=== PATIENT | male | born 1970 | race African-American/Black ===

== ENCOUNTER 2016-12-28 11:17 | Inpatient (IN) | payer OTHER ==
[~2016-12-28] VITALS: Ht 185.4 cm; Wt 79.4 kg
[~2016-12-28 11:17] MED LIST: CARAFATE1 G1 ORAL; CIPRO500 MG PO; NKM; NORCO 5-325 TA1 EACH ORAL; OMEPRAZOLE40 M1 ORAL; PHENERGAN25 M1 ORAL; PRILOSEC OTC20 MG ORAL; PROTONIX40 MG ORAL; RANITIDINE HCL150 MG ORAL; REGLAN10 MG ORAL; ZOFRAN4 M3 ORAL; ZOFRAN4 MG ORAL
[2016-12-28 11:31] VITALS: BP 129/100
--- NOTE | 2016-12-28 11:42 | Emergency Room Report ---
History of Present Illness General Chief Complaint: Vomiting Source: Patient Present Illness HPI Patient is with complaints of epigastric discomfort nausea vomiting Ongoing since last Friday Patient reports recent hospitalization at [facility] Reports that he worse or however does not have insurance he reports that he was scoped last month and was told that he had gastritis Denies any chest pressures of breath denies any back or flank pain Is not certain why he is having this recurrent discomfort Allergies: Coded Allergies: No Known Allergies (Unverified , 04/19/14) Patient History Past Medical History: see triage record Pertinent Family History: none Reviewed Nursing Documentation: PMH: Agreed, PSxH: Agreed Nursing Documentation-PM Past Medical History: No Stated History Hx Cardiac Problems: No Hx Cancer: No Hx Gastrointestinal Problems: Yes - ABDOMINAL PAIN,GASTRITIS Hx Neurological Problems: No Review of Systems All Other Systems: negative except mentioned in HPI Physical Exam Vital Signs Date Time Temp Pulse Resp B/P (MAP) Pulse Ox O2 Delivery O2 Flow Rate FiO2 12/28/16 11:21 98.1 116 18 116/81 98 Room Air Sp02 EP Interpretation: reviewed, normal General Appearance: mild distress - Appears uncomfortable Head: normocephalic, atraumatic Eyes: bilateral eye PERRL, bilateral eye EOMI ENT: hearing grossly normal, normal pharynx, TMs + canals normal, uvula midline Neck: full range of motion, supple, no meningismus, no bony tend Respiratory: lungs clear, normal breath sounds, no rhonchi, no respiratory distress, no retraction, no accessory muscle use Cardiovascular #1: normal peripheral pulses, regular rate, rhythm, no edema, no gallop, no JVD, no murmur Gastrointestinal: normal bowel sounds, non tender - However subjectively uncomfortable in the epigastric area, soft, no mass, no organomegaly, non- distended, no guarding, no hernia, no pulsatile mass, no rebound Genitourinary: no CVA tenderness Musculoskeletal: normal inspection Neurologic: oriented x3, responsive, saddle lining stitcher III-XII nml as tested, motor strength/ tone normal, sensory intact Psychiatric: mood/affect normal Skin: normal color, no rash, warm/dry, palpation normal Lymphatic: normal inspection, no adenopathy Medical Decision Making Diagnostic Impression: Primary Impression: Vomiting Additional Impressions: Acute renal insufficiency Acute gastritis ER Course With the history exam and presentation, multiple differentials considered, including but not limited to appendicitis, gastritis, cholecystitis, diverticulitis Patient has a benign lower abdominal evaluation IV hydration pain medication was provided On review of blood work patient's kidney function has significantly worsened from previous At this time requires admission for further care Labs Test 12/28/16 11:45 White Blood Count 9.3 K/UL (4.8-10.8) Red Blood Count 6.72 M/UL (4.70-6.10) Hemoglobin 18.6 G/DL (14.2-18.0) Hematocrit 58.7 % (42.0-52.0) Mean Corpuscular Volume 87 FL (80-99) Mean Corpuscular Hemoglobin 27.6 PG (27.0-31.0) Mean Corpuscular Hemoglobin Concent 31.7 G/DL (32.0-36.0) Red Cell Distribution Width 12.8 % (11.6-14.8) Platelet Count 279 K/UL (150-450) Mean Platelet Volume 7.9 FL (6.5-10.1) Neutrophils (%) (Auto) 76.4 % (45.0-75.0) Lymphocytes (%) (Auto) 12.0 % (20.0-45.0) Monocytes (%) (Auto) 10.3 % (1.0-10.0) Eosinophils (%) (Auto) 0.4 % (0.0-3.0) Basophils (%) (Auto) 0.9 % (0.0-2.0) Sodium Level 136 mEQ/L (135-145) Potassium Level 3.1 mEQ/L (3.4-4.9) Chloride Level 86 mEQ/L (98-107) Carbon Dioxide Level 26 mEQ/L (20-30) Anion Gap 24 (5-15) Blood Urea Nitrogen 57 mg/dL (7-23) Creatinine 2.6 mg/dL (0.7-1.2) Estimat Glomerular Filtration Rate 32.5 mL/min (>60) Glucose Level 120 mg/dL (74-106) Calcium Level 10.2 mg/dL (8.6-10.2) Total Bilirubin 0.8 mg/dL (0.0-1.2) Aspartate Amino Transf (AST/SGOT) 17 U/L (5-40) Alanine Aminotransferase (ALT/SGPT) 15 U/L (3-41) Alkaline Phosphatase 95 U/L (40-129) Total Protein 9.4 g/dL (6.6-8.7) Albumin 5.4 g/dL (3.5-5.2) Globulin 4.0 g/dL Albumin/Globulin Ratio 1.3 (1.0-2.7) Lipase 27 U/L (< 60) Last Vital Signs Date Time Temp Pulse Resp B/P (MAP) Pulse Ox O2 Delivery O2 Flow Rate FiO2 12/28/16 11:31 97.0 110 18 129/100 98 Room Air Status: improved Disposition: ADMITTED INPATIENT Condition: Serious CHRISTELLE PLATA D.O. Dec 28, 2016 11:42
[2016-12-28] MEDS ORDERED: Metoclopramide 10mg/2ml Inj IVP ONE (11:45)
[2016-12-28] MEDS ORDERED: Morphine Sulfate 4mg/ml Inj IVP ONE (11:45)
[2016-12-28] MEDS ORDERED: LORazepam Inj 2mg/ml 1ml IV ONE (11:45)
[2016-12-28 12:40] LABS: BASOPHILS % (AUTO) 0.9 % (0.0-2.0); EOSINOPHILS % (AUTO) 0.4 % (0.0-3.0); MEAN CORPUSCULAR HEMOGLOBIN 27.6 PG (27.0-31.0); MEAN CORPUSCULAR HGB CONC 31.7 G/DL (32.0-36.0); MEAN CORPUSCULAR VOLUME 87 FL (80-99); MEAN PLATELET VOLUME 7.9 FL (6.5-10.1); MONOCYTES % (AUTO) 10.3 % (1.0-10.0); NEUTROPHILS % (AUTO) 76.4 % (45.0-75.0); PLATELET COUNT 279 K/UL (150-450); RED BLOOD COUNT 6.72 M/UL (4.70-6.10); RED CELL DISTRIBUTION WIDTH 12.8 % (11.6-14.8); WHITE BLOOD COUNT 9.3 K/UL (4.8-10.8)
[2016-12-28 12:44] VITALS: BP 153/93
[2016-12-28 13:03] LABS: ALBUMIN/GLOBULIN RATIO 1.3 (1.0-2.7); CALCIUM 10.2 mg/dL (8.6-10.2); CREATININE 2.6 mg/dL (0.7-1.2); GLOMERULAR FILTRATION RATE 32.5 mL/min (>60); POTASSIUM 3.1 mEQ/L (3.4-4.9); TOTAL PROTEIN 9.4 g/dL (6.6-8.7)
[2016-12-28] MEDS ORDERED: HYDROmorphone 1 MG, DiphenhydrAMINE 25 MG in NS 55 ML IV ONE (13:30)
[2016-12-28] MEDS ORDERED: HYDROmorphone 1mg/ml Carpuject ONE (13:32)
[2016-12-28] MEDS ORDERED: DiphenhydrAMINE 50mg/ml Inj ONE (13:32)
[2016-12-28 14:30] VITALS: BP 119/91
[2016-12-28 16:42] VITALS: BP 133/90
[2016-12-28] MEDS ORDERED: Norco 10mg/325mg tab ORAL PRN (18:30)
[2016-12-28] MEDS: D5NS 1,000 ML IV SCH (18:41)
[2016-12-28] MEDS: Morphine Sulfate 2mg/ml Inj IVP PRN ×2 (18:42→22:43)
[2016-12-28 20:00] VITALS: BP 124/86
[2016-12-28] MEDS: Heparin 5000 units/ml inj SUBQ SCH (20:32)
[2016-12-29] VITALS: BP 123/76
[2016-12-29] MEDS: Morphine Sulfate 2mg/ml Inj IVP PRN (02:43)
[2016-12-29 04:00] VITALS: BP 135/81
[2016-12-29] MEDS: D5NS 1,000 ML IV SCH ×2 (04:45→14:37)
[2016-12-29 08:00] VITALS: BP 127/90
[2016-12-29] MEDS: Heparin 5000 units/ml inj SUBQ SCH (09:00)
[2016-12-29 12:00] VITALS: BP 131/86
[2016-12-29] MEDS ORDERED: Hydrocortisone 1% Cr 15gm TOPIC PRN (13:15)
[2016-12-29] MEDS ORDERED: D5NS 1000ml IV ONE (15:06)
[2016-12-29] MEDS ORDERED: NS 55ml IV ONE (15:59)
--- NOTE | 2016-12-30 15:59 | Discharge Summary ---
Discharge Summary Hospital Course Date of Admission Dec 28, 2016 at 14:00 Date of Discharge Dec 29, 2016 at 16:00 Admitting Diagnosis renal failure HPI Rafa Damian is a 46 year old male who was admitted on Dec 28, 2016 at 14:00 for Renal Failure Hospital Course dc summary #[id number] Discharge Discharge Disposition Patient eloped Discharge Diagnoses: Discharge Instructions Discharge Instructions Special Instructions I have been assigned to complete a D/C Summary on this account. I was not involved in the patient management Sophie Magaña NP (Vanchtein) Dec 30, 2016 15:59
--- NOTE | 2016-12-31 04:45 | Discharge Summary 2 SIG ---
DATE OF ADMISSION: 12/28/2016 DATE OF ELOPEMENT: 12/29/2016 Reason For Admission: 46-year-old male presented to emergency department for evaluation of epigastric discomfort, nausea, and vomiting for five days. The patient reported recent hospitalization in [place]. He also reported having endoscopy last month. After the procedure, he was told that he had gastritis. He denied chest pain. Denied shortness of breath. No back pain. No flank pain. The patient without other past medical history. Workup in the emergency room revealed tachycardia -116, no fever. Laboratory workup revealed no leukocytosis. Stable hemoglobin and hematocrit. Stable electrolytes except potassium -3.1, BUN -57, and creatinine-2.6. LFT, lipase and bilirubin were all within normal limits. The patient was given IV fluids, medicated for pain, given antiemetic and Pepcid and subsequently was admitted for further management. ADMITTING DIAGNOSES: 1. Acute gastritis. 2. Acute renal insufficiency. 3. Vomiting. 4. Hypokalemia. Hospital Stay: The patient was admitted to Med/Surg floor. The patient kept NPO on IV fluids. Pain management was provided. DVT and GI prophylaxis were provided. Antiemetic provided as needed.No nausea, no vomiting. Abdominal exam was benign from the ED. The patient was waiting for primary care physician to see him but then decided to elope. The patient did not have any IV access at that time. According to windows security analyst, he got to the car and left. FINAL DIAGNOSES: 1. Acute gastritis. 2. Acute renal insufficiency. 3. Vomiting. 4. Hypokalemia. Armin Gonzales M.D. I have been assigned to dictate discharge summary on this account and I was not involved in the patient's management. Sophie Subramanianreginald N.P. DR: LEÓN JOB#: [id number] CC: MAGUI
--- NOTE | 2017-01-05 22:58 | History and Physical ---
History of Present Illness General Date patient seen: Dec 29, 2016 Reason for Hospitalization: Vomiting Present Illness HPI 46 y/o male with no significant PMH who presented to the ED c/o abdominal pain with nausea and vomiting. Patient was admitted for further care. Upon admission, patient refused care per RN reports. He eloped and was not seen. Allergies: Coded Allergies: No Known Allergies (Unverified , 04/19/14) Medication History Scheduled Ciprofloxacin* (Cipro*), 500 MG PO BID No Known Medications* (NKM - No Known Medications*), 0 ., (Reported) Omeprazole (Omeprazole), 40 MG ORAL DAILY Promethazine Hcl* (Phenergan*), 25 MG ORAL Q6H Ranitidine Hcl* (Zantac*), 150 MG ORAL TWICE A DAY Ranitidine Hcl* (Zantac*), 150 MG ORAL TWICE A DAY Scheduled PRN Hydrocodone Bit/Acetaminophen 5-325* ([place] 5-325*), 1 TAB ORAL Q6H PRN for For Pain Ondansetron (Zofran), 4 MG ORAL Q6H PRN for Nausea & Vomiting Patient History Healthcare decision maker Resuscitation status Advanced Directive on File Physical Exam Height (Feet): 6 Height (Inches): 1.00 Weight (Pounds): 175 SAKINA CAPPS Jan 05, 2017 22:58
== END 2016-12-29 16:00 | disposition left against medical advice (07) | DRG 241 ==
LOC: EMR 11:46 → 4E 14:00 → EDBEDREQ 16:23 → 4E 16:51
DX: K29.70 Gastritis, unspecified, without bleeding (principal); E87.6 Hypokalemia; N28.9 Disorder of kidney and ureter, unspecified; R11.10 Vomiting, unspecified
CPT/HCPCS: 36415; 80053; 80300; 83690; 85025; 99285; J2405; J2765

== ENCOUNTER 2017-03-09 16:42 | Inpatient (IN) | payer OTHER ==
[~2017-03-09] VITALS: Ht 185.4 cm; Wt 77.1 kg
[2017-03-09] MEDS ORDERED: PRILOSEC10 M1 ORAL (17:00)
[2017-03-09] MEDS ORDERED: ZOFRAN8 MG ORAL (17:00)
[2017-03-09] MEDS ORDERED: DiphenhydrAMINE 50mg/ml Inj IVP ONE (17:00)
[2017-03-09] MEDS ORDERED: Morphine Sulfate 4mg/ml Inj IVP ONE ×2 (17:00→19:00)
[2017-03-09] MEDS ORDERED: Metoclopramide 10mg/2ml Inj IVP ONE (17:00)
[2017-03-09] MEDS ORDERED: METOCLOPRAMIDE H5 M1 ORAL (17:00)
[2017-03-09 17:01] VITALS: BP 113/81
--- NOTE | 2017-03-09 17:21 | Emergency Room Report ---
History of Present Illness General Chief Complaint: Abdominal Pain Source: Patient Present Illness HPI Patient presents with epigastric pain. He has a history of gastritis. Feels like that to him. He does not recognize the name pancreatitis. The pain began yesterday. His epigastric radiate somewhat into the chest. It's burning and 10 /10 at this time. He denies alcohol. He tried smoking some cannabis to help himself with his pain. He denies any other medications at this time. He denies vomiting blood. Denies any melena. There's no fever, chills, cough, dysuria, joint pain. No headache. Generalized weakness. In the past he has had both cyclic vomiting and renal insufficiency. 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: PMH: Agreed, PSxH: Agreed Nursing Documentation-PMH Hx Cardiac Problems: No Hx Cancer: No Hx Gastrointestinal Problems: Yes - Reflux Hx Neurological Problems: No Review of Systems All Other Systems: negative except mentioned in HPI Physical Exam Vital Signs Date Time Temp Pulse Resp B/P (MAP) Pulse Ox O2 Delivery O2 Flow Rate FiO2 03/09/17 16:51 99.0 121 18 108/75 96 Room Air Sp02 EP Interpretation: reviewed, normal General Appearance: well appearing, no apparent distress, GCS 15, thin Head: normocephalic Eyes: bilateral eye Scleral Injection ENT: moist mucus membranes Neck: supple Respiratory: lungs clear, normal breath sounds Cardiovascular #1: regular rate, rhythm Cardiovascular #2: 2+ radial (R) Gastrointestinal: normal inspection, normal bowel sounds, no mass, non- distended, no guarding, no rebound, tenderness, scaphoid Musculoskeletal: back normal, gait/station normal, normal range of motion Neurologic: alert, oriented x3, grossly normal Psychiatric: mood/affect normal Skin: normal inspection, warm/dry Medical Decision Making Diagnostic Impression: Primary Impression: Abdominal pain Qualified Codes: R10.13 - Epigastric pain Additional Impressions: Acute renal failure Qualified Codes: N17.9 - Acute kidney failure, unspecified Gastritis Qualified Codes: K29.00 - Acute gastritis without bleeding Dehydration Intractable vomiting Qualified Codes: R11.2 - Nausea with vomiting, unspecified ER Course The patient presents with epigastric pain and vomiting. He has a history of gastritis. Differential includes gastritis, peptic ulcer disease, pancreatitis number GERD amongst others. Evaluation will be with labs, EKG. The patient was treated with IV hydration, Pepcid and analgesia. Labs with mild leukocytosis, renal failure. Polycythemia suggests volume depletion. Hypercalcemia. Improved with medication but still episodes of vomiting. Treated again with zofran. Repeat analgesia. Admit medical Dr. Gonzales. Laboratory Tests Test 03/09/17 18:25 03/10/17 02:00 White Blood Count 13.9 K/UL (4.8-10.8) H Red Blood Count 6.13 M/UL (4.70-6.10) H Hemoglobin 17.1 G/DL (14.2-18.0) Hematocrit 55.0 % (42.0-52.0) H Mean Corpuscular Volume 90 FL (80-99) Mean Corpuscular Hemoglobin 27.9 PG (27.0-31.0) Mean Corpuscular Hemoglobin Concent 31.1 G/DL (32.0-36.0) L Red Cell Distribution Width 13.9 % (11.6-14.8) Platelet Count 231 K/UL (150-450) Mean Platelet Volume 8.0 FL (6.5-10.1) Neutrophils (%) (Auto) % (45.0-75.0) Lymphocytes (%) (Auto) % (20.0-45.0) Monocytes (%) (Auto) % (1.0-10.0) Eosinophils (%) (Auto) % (0.0-3.0) Basophils (%) (Auto) % (0.0-2.0) Differential Total Cells Counted 100 Neutrophils % (Manual) 85 % (45-75) H Lymphocytes % (Manual) 8 % (20-45) L Monocytes % (Manual) 5 % (1-10) Eosinophils % (Manual) 2 % (0-3) Basophils % (Manual) 0 % (0-2) Band Neutrophils 0 % (0-8) Platelet Estimate Adequate Platelet Morphology Normal Red Blood Cell Morphology Normal Prothrombin Time 10.7 SEC (9.30-11.50) Prothrombin Time INR 1.0 (0.9-1.1) PTT 25 SEC (23-33) Sodium Level 144 MMOL/L (136-145) Potassium Level 4.1 MMOL/L (3.5-5.1) Chloride Level 100 MMOL/L (98-107) Carbon Dioxide Level 26 MMOL/L (21-32) Anion Gap 18 mmol/L (5-15) H Blood Urea Nitrogen 43 mg/dL (7-18) H Creatinine 3.8 MG/DL (0.55-1.30) H Estimate Glomerular Filtration Rate 21.0 mL/min (>60) Glucose Level 116 MG/DL (74-106) H Calcium Level 10.9 MG/DL (8.5-10.1) H Total Bilirubin 0.5 MG/DL (0.2-1.0) Aspartate Amino Transferase (AST) 26 U/L (15-37) Alanine Aminotransferase (ALT) 42 U/L (12-78) Alkaline Phosphatase 97 U/L (46-116) Total Creatine Kinase 276 U/L (26-308) Total Protein 10.8 G/DL (6.4-8.2) H Albumin 5.7 G/DL (3.4-5.0) H Globulin 5.1 g/dL Albumin/Globulin Ratio 1.1 (1.0-2.7) Lipase 83 U/L (73-393) Serum Alcohol < 3 mg/dL Urine Color Yellow Urine Appearance Clear Urine pH 5 (4.5-8.0) Urine Specific [place] 1.030 (1.005-1.035) Urine Protein 2+ (NEGATIVE) H Urine Glucose (UA) Negative (NEGATIVE) Urine Ketones Negative (NEGATIVE) Urine Occult Blood 1+ (NEGATIVE) H Urine Nitrite Negative (NEGATIVE) Urine Bilirubin Negative (NEGATIVE) Urine Urobilinogen Normal MG/DL (0.0-1.0) Urine Leukocyte Esterase 1+ (NEGATIVE) H Urine RBC 0-2 /HPF (0 - 0) H Urine WBC 0-2 /HPF (0 - 0) Urine Squamous Epithelial Cells Few /LPF (NONE/OCC) Urine Calcium Oxalate Crystals Few /LPF (NONE) Urine Bacteria Few /HPF (NONE) Urine Hyaline Casts 5-10 /LPF (NONE) H Urine Fine Granular Casts 5-10 /LPF (NONE) H Urine Opiates Screen Positive (NEGATIVE) H Urine Barbiturates Screen Negative (NEGATIVE) Phencyclidine (PCP) Screen Negative (NEGATIVE) Urine Amphetamines Screen Negative (NEGATIVE) Urine Benzodiazepines Screen Negative (NEGATIVE) Urine Cocaine Screen Negative (NEGATIVE) Urine Marijuana (THC) Screen Positive (NEGATIVE) H EKG Diagnostic Results Rate: normal Rhythm: NSR ST Segments: no acute changes Rhythm Strip Diag. Results EP Interpretation: yes Rhythm: NSR, no PVC's, no ectopy Chest X-Ray Diagnostic Results Chest X-Ray Diagnostic Results : Chest X-Ray Ordered: Yes # of Views/Limited/Complete: 1 View Indication: Other EP Interpretation: Yes Interpretation: no consolidation, no effusion, no pneumothorax, no acute cardiopulmonary disease Impression: No acute disease Electronically Signed by: Adán Magallon MD Last Vital Signs Date Time Temp Pulse Resp B/P (MAP) Pulse Ox O2 Delivery O2 Flow Rate FiO2 03/09/17 22:06 99.3 73 18 128/73 99 Room Air Status: improved Disposition: ADMITTED INPATIENT Condition: Serious Referrals: [facility] CARVALHO,REFERRING (PCP) Adán Magallon M.D. Mar 09, 2017 17:21
[2017-03-09 18:49] LABS: PROTHROMBIN TIME 10.7 SEC (9.30-11.50)
[2017-03-09 18:53] VITALS: BP 139/84
[2017-03-09 18:54] LABS: ANION GAP 18 mmol/L (5-15); CALCIUM 10.9 MG/DL (8.5-10.1); CARBON DIOXIDE 26 MMOL/L (21-32); CHLORIDE 100 MMOL/L (98-107); CREATININE 3.8 MG/DL (0.55-1.30); POTASSIUM 4.1 MMOL/L (3.5-5.1); SODIUM 144 MMOL/L (136-145)
[2017-03-09 18:56] LABS: MEAN CORPUSCULAR HEMOGLOBIN 27.9 PG (27.0-31.0); MEAN CORPUSCULAR HGB CONC 31.1 G/DL (32.0-36.0); MEAN CORPUSCULAR VOLUME 90 FL (80-99); PLATELET COUNT 231 K/UL (150-450); RED BLOOD COUNT 6.13 M/UL (4.70-6.10); RED CELL DISTRIBUTION WIDTH 13.9 % (11.6-14.8); WHITE BLOOD COUNT 13.9 K/UL (4.8-10.8)
[2017-03-09 19:08] LABS: ALANINE AMINOTRANSFERASE 42 U/L (12-78); ALBUMIN/GLOBULIN RATIO 1.1 (1.0-2.7); ASPARTATE AMINO TRANSFERASE 26 U/L (15-37); LIPASE 83 U/L (73-393); TOTAL PROTEIN 10.8 G/DL (6.4-8.2)
[2017-03-09 19:13] LABS: TOTAL CELLS COUNTED 100
[2017-03-09 19:14] LABS: EOSINOPHILS % (MANUAL) 2 % (0-3); LYMPHOCYTES % (MANUAL) 8 % (20-45); NEUTROPHILS % (MANUAL) 85 % (45-75)
[2017-03-09 19:15] LABS: BAND NEUTROPHILS % (MANUAL) 0 % (0-8); BASOPHILS % (MANUAL) 0 % (0-2); PLATELET ESTIMATE ADEQUATE; PLATELET MORPHOLOGY NORMAL
[2017-03-09 19:20] VITALS: BP 135/81
[2017-03-09] MEDS ORDERED: OMEPRAZOLE MAGN20 MG PO (20:09)
[2017-03-09 21:35] VITALS: BP 128/73
[2017-03-09 22:05] VITALS: BP 127/89
[2017-03-09] MEDS ORDERED: D5NS 1,000 ML IV SCH (22:45)
[2017-03-09] MEDS ORDERED: Morphine Sulfate 2mg/ml Inj IM PRN (22:45)
[2017-03-09] MEDS ORDERED: Morphine Sulfate 2mg/ml Inj IVP PRN (23:15)
[2017-03-10 02:19] LABS: KETONES,URINE NEGATIVE (NEGATIVE); LEUKOCYTE ESTERASE ,URINE 1+ (NEGATIVE); NITRITE,URINE NEGATIVE (NEGATIVE); PH,URINE 5 (4.5-8.0); PROTEIN,URINE 2+ (NEGATIVE); UROBILINOGEN,URINE NORMAL MG/DL (0.0-1.0)
[2017-03-10 02:26] LABS: APPEARANCE,URINE CLEAR
[2017-03-10 02:27] LABS: BACTERIA,URINE FEW /HPF; CALCIUM OXALATE CRYSTALS,UR FEW /LPF; RBC,URINE 0-2 /HPF (0 - 0); SQUAMOUS EPITHELIAL CELL,UR FEW /LPF (NONE/OCC); WBC,URINE 0-2 /HPF (0 - 0)
[2017-03-10] MEDS ORDERED: Morphine Sulfate 2mg/ml Inj IVP ONE (03:15)
[2017-03-10] MEDS ORDERED: Morphine Sulfate 2mg/ml Inj IVP PRN (03:30)
[2017-03-10 04:00] VITALS: BP 116/65
[2017-03-10 08:00] VITALS: BP 127/75
--- NOTE | 2017-03-10 10:18 | Diagnostic Imaging Report ---
Indication: Chest pain Technique: One view of the chest Comparison: none Findings: Lungs and pleural spaces are clear. Heart size is normal. Impression: No acute process This agrees with the preliminary interpretation provided by the emergency room physician
--- NOTE | 2017-03-10 11:06 | GI Initial Consult Note ---
History of Present Illness General Date patient seen: Mar 10, 2017 Time patient seen: 11:01 Reason for Hospitalization: Abdominal Pain Referring physician: GÉNESIS Reason for Consultation: EPIGASTRIC PAIN, CYCLIC VOMITING Present Illness HPI Patient presents with epigastric pain. He has a history of gastritis. Feels like that to him. He does not recognize the name pancreatitis. The pain began yesterday. His epigastric radiate somewhat into the chest. It's burning and 10 /10 at this time. He denies alcohol. He tried smoking some cannabis to help himself with his pain. He denies any other medications at this time. He denies vomiting blood. Denies any melena. There's no fever, chills, cough, dysuria, joint pain. No headache. Generalized weakness. In the past he has had both cyclic vomiting and renal insufficiency. GI consulted for epigastric pain / cyclic vomiting. HPI as noted above. Pt seen on floor, awake A&Ox4 NAD with no active s/sx of N/V/D. Denies any pain at this time, states he feels okay and is ready to go home. Acknowledges cyclic vomiting. Presents today with leukocytosis. Lipase negative. Hx of MJ as seen on drug screen. No history of endoscopic / colonoscopies. Home Meds Reported Medications Omeprazole Magnesium (OMEPRAZOLE MAGNESIUM) 20 Mg Capsule.dr, 20 MG PO BID, CAP 03/09/17 Ondansetron Hcl* (ZOFRAN*) 8 Mg Tablet, 8 MG ORAL Q6H Y for Nausea & Vomiting, # 4 TAB 0 Refills 03/09/17 Metoclopramide Hcl* (METOCLOPRAMIDE HCL*) 5 Mg Tablet, 5 MG ORAL QID, TAB 03/09/17 Discontinued Reported Medications Omeprazole Magnesium (PRILOSEC) 10 Mg Suspdr.pkt, 20 MG ORAL BID, PACKET 03/09/17 Discontinued Scripts Ranitidine Hcl* (ZANTAC*) 150 Mg Tablet, 150 MG ORAL TWICE A DAY, #30 TAB Prov:CHAR PEÑA M.D. 04/03/15 Ciprofloxacin* (CIPRO*) 500 Mg Tablet, 500 MG PO BID, #14 TAB Prov:MITRA KUMAR M.D. 03/31/15 Promethazine Hcl* (PHENERGAN*) 25 Mg Tablet, 25 MG ORAL Q6H, #15 TAB 0 Refills Prov:MITRA KUMAR M.D. 03/31/15 Hydrocodone Bit/Acetaminophen 5-325* ([place] 5-325*) 1 Each Tablet, 1 TAB ORAL Q6H Y for For Pain, #10 TAB Prov:MITRA KUMAR M.D. 03/31/15 Omeprazole (OMEPRAZOLE) 40 Mg Capsule.dr, 40 MG ORAL DAILY for 30 Days, CAP Prov:MITRA KUMAR M.D. 03/31/15 Ranitidine Hcl* (ZANTAC*) 150 Mg Tablet, 150 MG ORAL TWICE A DAY, #30 TAB Prov:MITRA KUMAR M.D. 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: PMH: Agreed, PSxH: Agreed Nursing Documentation-PMH Hx Cardiac Problems: No Hx Cancer: No Hx Gastrointestinal Problems: Yes - Reflux Hx Neurological Problems: No Social History: Reports: drug use - Review of Systems All Other Systems: negative except mentioned in HPI Physical Exam Vital Signs Date Time Temp Pulse Resp B/P (MAP) Pulse Ox O2 Delivery O2 Flow Rate FiO2 03/09/17 16:51 99.0 121 18 108/75 96 Room Air Sp02 EP Interpretation: reviewed, normal Labs Laboratory Tests Test 03/09/17 18:25 03/10/17 02:00 White Blood Count 13.9 K/UL (4.8-10.8) H Red Blood Count 6.13 M/UL (4.70-6.10) H Hemoglobin 17.1 G/DL (14.2-18.0) Hematocrit 55.0 % (42.0-52.0) H Mean Corpuscular Volume 90 FL (80-99) Mean Corpuscular Hemoglobin 27.9 PG (27.0-31.0) Mean Corpuscular Hemoglobin Concent 31.1 G/DL (32.0-36.0) L Red Cell Distribution Width 13.9 % (11.6-14.8) Platelet Count 231 K/UL (150-450) Mean Platelet Volume 8.0 FL (6.5-10.1) Neutrophils (%) (Auto) % (45.0-75.0) Lymphocytes (%) (Auto) % (20.0-45.0) Monocytes (%) (Auto) % (1.0-10.0) Eosinophils (%) (Auto) % (0.0-3.0) Basophils (%) (Auto) % (0.0-2.0) Differential Total Cells Counted 100 Neutrophils % (Manual) 85 % (45-75) H Lymphocytes % (Manual) 8 % (20-45) L Monocytes % (Manual) 5 % (1-10) Eosinophils % (Manual) 2 % (0-3) Basophils % (Manual) 0 % (0-2) Band Neutrophils 0 % (0-8) Platelet Estimate Adequate Platelet Morphology Normal Red Blood Cell Morphology Normal Prothrombin Time 10.7 SEC (9.30-11.50) Prothromb Time International Ratio 1.0 (0.9-1.1) Activated Partial Thromboplast Time 25 SEC (23-33) Sodium Level 144 MMOL/L (136-145) Potassium Level 4.1 MMOL/L (3.5-5.1) Chloride Level 100 MMOL/L (98-107) Carbon Dioxide Level 26 MMOL/L (21-32) Anion Gap 18 mmol/L (5-15) H Blood Urea Nitrogen 43 mg/dL (7-18) H Creatinine 3.8 MG/DL (0.55-1.30) H Estimat Glomerular Filtration Rate 21.0 mL/min (>60) Glucose Level 116 MG/DL (74-106) H Calcium Level 10.9 MG/DL (8.5-10.1) H Total Bilirubin 0.5 MG/DL (0.2-1.0) Aspartate Amino Transf (AST/SGOT) 26 U/L (15-37) Alanine Aminotransferase (ALT/SGPT) 42 U/L (12-78) Alkaline Phosphatase 97 U/L (46-116) Total Creatine Kinase 276 U/L (26-308) Total Protein 10.8 G/DL (6.4-8.2) H Albumin 5.7 G/DL (3.4-5.0) H Globulin 5.1 g/dL Albumin/Globulin Ratio 1.1 (1.0-2.7) Lipase 83 U/L (73-393) Serum Alcohol < 3 mg/dL Urine Color Yellow Urine Appearance Clear Urine pH 5 (4.5-8.0) Urine Specific [place] 1.030 (1.005-1.035) Urine Protein 2+ (NEGATIVE) H Urine Glucose (UA) Negative (NEGATIVE) Urine Ketones Negative (NEGATIVE) Urine Occult Blood 1+ (NEGATIVE) H Urine Nitrite Negative (NEGATIVE) Urine Bilirubin Negative (NEGATIVE) Urine Urobilinogen Normal MG/DL (0.0-1.0) Urine Leukocyte Esterase 1+ (NEGATIVE) H Urine RBC 0-2 /HPF (0 - 0) H Urine WBC 0-2 /HPF (0 - 0) Urine Squamous Epithelial Cells Few /LPF (NONE/OCC) Urine Calcium Oxalate Crystals Few /LPF (NONE) Urine Bacteria Few /HPF (NONE) Urine Hyaline Casts 5-10 /LPF (NONE) H Urine Fine Granular Casts 5-10 /LPF (NONE) H Urine Opiates Screen Positive (NEGATIVE) H Urine Barbiturates Screen Negative (NEGATIVE) Phencyclidine (PCP) Screen Negative (NEGATIVE) Urine Amphetamines Screen Negative (NEGATIVE) Urine Benzodiazepines Screen Negative (NEGATIVE) Urine Cocaine Screen Negative (NEGATIVE) Urine Marijuana (THC) Screen Positive (NEGATIVE) H General Appearance: well appearing, no apparent distress, alert Head: normocephalic EENT: PERRL/EOMI, normal ENT inspection Neck: supple Respiratory: normal breath sounds, no respiratory distress Cardiovascular: normal rate Gastrointestinal: normal inspection, non tender, soft, normal bowel sounds, non -distended Rectal: deferred Genitourinary: deferred Musculoskeletal: normal inspection, back normal Neurologic: normal inspection, alert, oriented x3, responsive Psychiatric: normal inspection, judgement/insight normal, memory normal Skin: normal inspection, normal color, no rash, warm/dry, palpation normal, well hydrated Lymphatic: normal inspection, no adenopathy Current Medications Current Medications Medications (Trade) Dose Ordered Sig/Mitchell Route PRN Reason Start Time Stop Time Status Last Admin Dose Admin Dextrose/Sodium Chloride 1,000 ml @ 60 mls/hr [id number] IV 03/09/17 22:45 04/08/17 22:44 03/09/17 23:18 Morphine Sulfate (Morphine Sulfate) 3 mg Q6HR PRN IVP Severe Pain (Pain Scale 7-10) 03/10/17 03:30 03/17/17 03:29 03/10/17 06:42 Ondansetron HCl (Zofran) 4 mg Q4HR PRN IVP Nausea & Vomiting 03/09/17 22:45 04/08/17 22:44 GI: Plan Problems: (1) Cyclic vomiting syndrome (2) Dehydration (3) Abdominal pain (4) Nausea & vomiting (5) Drug-seeking behavior (6) poly substance abuse (7) Dehydration (8) Intractable vomiting Plan utox >> positive for marijuana fu nephro recs symptomatic treatment pain mgmt, decrease pain medication dose adv to soft renal diet H2B zofran prn abx fu labs Discussed with Dr. Fuentes. Thank you for this patient referral, we will follow. Ifrah Barrera N.P. Mar 10, 2017 11:06
[2017-03-10] MEDS ORDERED: D5 1/2NS 1000ml IV ONE (16:38)
[2017-03-10] MEDS ORDERED: D5NS 1000ml IV ONE (16:49)
--- NOTE | 2017-03-10 19:23 | Cardiology Report ---
APPROVED REPORT EKG Measurement Heart [id number] Normal sinus rhythm Right atrial enlargement Borderline ECG
--- NOTE | 2017-03-11 14:18 | Discharge Summary ---
Discharge Summary Hospital Course Date of Admission Mar 09, 2017 at 20:32 Date of Discharge Mar 10, 2017 at 11:59 Admitting Diagnosis acute renal failure/abdominal pain HPI Rafa Damian is a 46 year old male who was admitted on Mar 09, 2017 at 20:32 for Acute Renal Failure, Abdominal Pain Hospital Course dc summary #[id number] Discharge Discharge Disposition Patient signed AMA Discharge Diagnoses: Discharge Instructions Discharge Instructions Special Instructions I have been assigned to complete a D/C Summary on this account. I was not involved in the patient management Sophie Magaña NP (Vanchtein) Mar 11, 2017 14:18
--- NOTE | 2017-03-12 05:15 | Discharge Summary 2 SIG ---
DATE OF ADMISSION: 03/09/2017 DATE OF SIGNING AGAINST MEDICAL ADVICE: 03/10/2017. REASON FOR ADMISSION: 46-year-old male with a history of gastritis, presented to emergency room for evaluation due to the epigastric pain. The patient stated that his pain felt like gastritis. Pain lasted for one day. Pain located in the epigastric region with radiation somewhat into the chest. It was described as burning and 10 out 10 on a scale 1 to 10. He denied alcohol abuse. He smokes marijuana for pain, but it did not help him with the pain. He denied hematemesis, melena, or dark tarry stools, No fevers. No chills. No dysuria. No cough. No joint pain. No headache. Workup in the emergency room revealed WBC -13.9, BUN- 43, and creatinine -3.8. Lipase stable- 83. Urinalysis negative. Urine toxicology screen was positive for opiate and marijuana. EKG revealed normal sinus rhythm. Chest x-ray revealed no acute intracranial pathology. The patient was admitted with abdominal pain, acute renal failure, dehydration, gastritis, and intractable vomiting. HOSPITAL COURSE: The patient was admitted. The patient was started on the IV fluids. Pain management was addressed. Antiemetic provided as needed. GI consult was requested. GI seen and evaluated the patient and diagnosed him with cyclic vomiting syndrome. GI specialist recommended symptomatic treatment and pain management, but decrease narcotic medication use and slowly advance diet as tolerated. The patient was on H2 troy for GI prophylaxis. Later during the day, the patient decided to sign against medical advice. The risk and consequences of signing against medical advice were discussed with the patient by nursing staff. The patient verbalized understanding. but signed the form and left. FINAL DIAGNOSES: 1. Cyclic vomiting syndrome. 2. Dehydration. 3. Abdominal pain. 4. Acute renal failure, possibly secondary to dehydration. 5. Gastritis. 6. Polysubstance abuse. Armin Gonzales M.D. I have been assigned to dictate discharge summary on this account and I was not involved in the patient's management. Sophie Magaña N.P. (Vanchtein) DR: Gutierrez JOB#: [id number] CC: MAGUI
== END 2017-03-10 11:59 | disposition left against medical advice (07) | DRG 54 ==
LOC: EMR 17:14 → 4E 20:32 → EDBEDREQ 20:43
DX: G43.A1 Cyclical vomiting, in migraine, intractable (principal); N17.9 Acute kidney failure, unspecified; K29.70 Gastritis, unspecified, without bleeding; E86.0 Dehydration; F19.10 Other psychoactive substance abuse, uncomplicated; Z76.5 Malingerer [conscious simulation]; R10.13 Epigastric pain
CPT/HCPCS: 36415; 71010; 80053; 80307; 80329; 81003; 82550; 83690; 85007; 85025; 85610; 85730; 93005; 99285; J2405; J2765

== ENCOUNTER 2017-03-12 22:21 | Emergency (ER) | payer OTHER ==
[~2017-03-12] VITALS: Ht 185.4 cm; Wt 77.1 kg
[~2017-03-12 22:21] MED LIST changes: +METOCLOPRAMIDE H5 M1 ORAL; +OMEPRAZOLE MAGN20 MG PO; +PRILOSEC10 M1 ORAL; +ZOFRAN8 MG ORAL
[2017-03-12] MEDS ORDERED: Capsaicin 0.075% Cream TOPIC ONE (23:45)
[2017-03-12] MEDS ORDERED: Haloperidol Lactate 5 MG in D5W 55 ML IVPB ONE (23:45)
[2017-03-12 23:50] LABS: BASOPHILS % (AUTO) 1.2 % (0.0-2.0); EOSINOPHILS % (AUTO) 0.6 % (0.0-3.0); LYMPHOCYTES % (AUTO) 17.8 % (20.0-45.0); MEAN CORPUSCULAR VOLUME 88 FL (80-99); MEAN PLATELET VOLUME 8.5 FL (6.5-10.1); MONOCYTES % (AUTO) 9.6 % (1.0-10.0); NEUTROPHILS % (AUTO) 70.9 % (45.0-75.0); PLATELET COUNT 256 K/UL (150-450); RED CELL DISTRIBUTION WIDTH 13.3 % (11.6-14.8); WHITE BLOOD COUNT 10.5 K/UL (4.8-10.8)
[2017-03-13] MEDS ORDERED: Haloperidol 5mg/ml Inj IM ONE
[2017-03-13 00:06] LABS: ANION GAP 15 mmol/L (5-15); CALCIUM 10.4 MG/DL (8.5-10.1); CARBON DIOXIDE 27 MMOL/L (21-32); CHLORIDE 92 MMOL/L (98-107); CREATININE 3.5 MG/DL (0.55-1.30); POTASSIUM 3.8 MMOL/L (3.5-5.1); SODIUM 134 MMOL/L (136-145)
[2017-03-13 00:11] LABS: ALANINE AMINOTRANSFERASE 40 U/L (12-78); ALBUMIN/GLOBULIN RATIO 1.1 (1.0-2.7); ASPARTATE AMINO TRANSFERASE 32 U/L (15-37); LIPASE 136 U/L (73-393); TOTAL PROTEIN 10.5 G/DL (6.4-8.2)
--- NOTE | 2017-03-13 00:16 | Emergency Room Report ---
History of Present Illness General Chief Complaint: Abdominal Pain Source: Patient Present Illness HPI 46-year-old male, with a history of cyclic vomiting syndrome, presents with abdominal pain nausea vomiting Patient states pain started gradually after vomiting, localized to epigastric area, non radiating, burning in nature, intermittent. No relieving or exacerbating factors. Severity is 5 out of 10. Pt reports n/v, more than 5 episodes of nbnb vomiting per day for the last 2 days, denies diarrhea No hx of abdominal surgeries. No hx of endoscopies/colonoscopies. Patient was last admitted at the beginning of this month, for same symptoms, at that time he was noted to have acute renal failure with a creatinine of 3.8, he was admitted to the hospital seen by gastroenterology and was diagnosed with cyclic vomiting syndrome secondary to marijuana use He should states that he has been off of marijuana however still continues to use a little bit Allergies: Coded Allergies: No Known Allergies (Unverified , 04/19/14) Patient History Past Medical History: see triage record Past Surgical History: none Pertinent Family History: none Reviewed Nursing Documentation: PMH: Agreed, PSxH: Agreed Nursing Documentation-PMH Hx Cardiac Problems: No Hx Cancer: No Hx Gastrointestinal Problems: Yes Hx Neurological Problems: No Review of Systems All Other Systems: negative except mentioned in HPI Physical Exam Vital Signs Date Time Temp Pulse Resp B/P (MAP) Pulse Ox O2 Delivery O2 Flow Rate FiO2 03/12/17 22:29 98.1 107 15 97 Room Air Sp02 EP Interpretation: reviewed, normal General Appearance: alert, GCS 15, non-toxic, moderate distress Head: normocephalic, atraumatic Eyes: bilateral eye normal inspection, bilateral eye PERRL, bilateral eye EOMI ENT: normal ENT inspection, normal pharynx, normal voice, moist mucus membranes Neck: normal inspection, full range of motion, supple Respiratory: normal inspection, lungs clear, normal breath sounds, no respiratory distress, no retraction, no wheezing, speaking full sentences, chest symmetrical Cardiovascular #1: normal inspection, regular rate, rhythm, normal capillary refill Cardiovascular #2: 2+ radial (R), 2+ radial (L) Gastrointestinal: soft, non-distended, no guarding, other - +epigastric mild tendenress nontender all else Musculoskeletal: normal inspection, back normal, normal range of motion, non- tender Neurologic: normal inspection, alert, oriented x3, responsive, motor strength/ tone normal, sensory intact, normal gait, speech normal Psychiatric: normal inspection, judgement/insight normal, memory normal Skin: normal inspection, normal color, no rash, warm/dry, well hydrated, normal turgor Medical Decision Making Diagnostic Impression: Primary Impression: Cyclic vomiting syndrome Additional Impression: Chronic kidney disease ER Course -year-old male, marijuana user, cyclic vomiting syndrome, presents with nausea vomiting, abdominal pain Differential Diagnosis: Likely cyclic vomiting secondary to marijuana use, other possibilities include Gastritis, gastroenteritis, cholecystitis, appendicitis, diverticulitis, UTI/ pyelo At this time abdomen is soft nontender, not likely to have acute intra- abdominal surgical pathology, will hold CT for now. Plan: Basic labs, ua, ekg Zofran, capsaicin cream, Haldol, IVF ER course: Patient has remained stable during ED stay. Pain improved, no further episodes vomiting Repeat abdominal exam is nontender. Tolerating PO Disposition: Patient is to be discharged to home. instructed to stop all marijuana use, fu with GI in 1 week Patient is instructed to follow up with their primary care doctor within 5 days. Strict return precautions discussed with patient such as fever, chills, worsening/severe abdominal pain, nausea, vomiting, black or bloody stools, which may indicate severe illness. Patient verbalizes understanding and agrees with plan. Please note that this Emergency Department Report was dictated using [employer] seller technology software, occasionally this can lead to erroneous entry secondary to interpretation by the dictation equipment EKG Diagnostic Results EP Interpretation: Yes Rate: Tachycardic Rhythm: NSR ST Segments: Prolonged QT ASA given to patient: No Rhythm Strip EP Interpretation: Yes Rate: 90 Rhythm: NSR, no PVCs, no ectopy Laboratory Tests Test 03/12/17 23:15 White Blood Count 10.5 K/UL (4.8-10.8) Red Blood Count 6.40 M/UL (4.70-6.10) H Hemoglobin 18.6 G/DL (14.2-18.0) *H Hematocrit 56.3 % (42.0-52.0) H Mean Corpuscular Volume 88 FL (80-99) Mean Corpuscular Hemoglobin 29.0 PG (27.0-31.0) Mean Corpuscular Hemoglobin Concent 33.0 G/DL (32.0-36.0) Red Cell Distribution Width 13.3 % (11.6-14.8) Platelet Count 256 K/UL (150-450) Mean Platelet Volume 8.5 FL (6.5-10.1) Neutrophils (%) (Auto) 70.9 % (45.0-75.0) Lymphocytes (%) (Auto) 17.8 % (20.0-45.0) L Monocytes (%) (Auto) 9.6 % (1.0-10.0) Eosinophils (%) (Auto) 0.6 % (0.0-3.0) Basophils (%) (Auto) 1.2 % (0.0-2.0) Sodium Level 134 MMOL/L (136-145) L Potassium Level 3.8 MMOL/L (3.5-5.1) Chloride Level 92 MMOL/L (98-107) L Carbon Dioxide Level 27 MMOL/L (21-32) Anion Gap 15 mmol/L (5-15) Blood Urea Nitrogen 53 mg/dL (7-18) H Creatinine 3.5 MG/DL (0.55-1.30) H Estimate Glomerular Filtration Rate 23.0 mL/min (>60) Glucose Level 143 MG/DL (74-106) H Calcium Level 10.4 MG/DL (8.5-10.1) H Total Bilirubin 0.9 MG/DL (0.2-1.0) Aspartate Amino Transferase (AST) 32 U/L (15-37) Alanine Aminotransferase (ALT) 40 U/L (12-78) Alkaline Phosphatase 93 U/L (46-116) Total Protein 10.5 G/DL (6.4-8.2) H Albumin 5.6 G/DL (3.4-5.0) H Globulin 4.9 g/dL Albumin/Globulin Ratio 1.1 (1.0-2.7) Lipase 136 U/L (73-393) Last Vital Signs Date Time Temp Pulse Resp B/P (MAP) Pulse Ox O2 Delivery O2 Flow Rate FiO2 03/12/17 22:29 98.1 107 15 97 Room Air Disposition: HOME, SELF-CARE Condition: Improved Patient Instructions: Abdominal Pain, Sarwat Mark M.D. Mar 13, 2017 00:16
[2017-03-13 01:25] VITALS: BP 116/85
[2017-03-13 03:03] VITALS: BP 116/85
--- NOTE | 2017-03-24 19:19 | Cardiology Report ---
APPROVED REPORT EKG Measurement Heart [id number] Normal sinus rhythm Biatrial enlargement Pulmonary disease pattern Prolonged QT Abnormal ECG
== END 2017-03-13 01:25 | disposition home or self-care (01) ==
LOC: EMR 23:22
DX: G43.A0 Cyclical vomiting, in migraine, not intractable (principal); N18.9 Chronic kidney disease, unspecified
CPT/HCPCS: 36415; 80053; 83690; 85025; 93005; 96361; 96372; 96374; 96375; 99284; J1630; J2405

== ENCOUNTER 2017-04-12 15:44 | Emergency (ER) | payer SELFPAY ==
[~2017-04-12] VITALS: Ht 185.4 cm; Wt 79.4 kg
[2017-04-12] MEDS ORDERED: Lidocaine 2% Visc 15ml soln ORAL ONE (16:15)
[2017-04-12] MEDS ORDERED: Dicyclomine HCl 10mg/5ml oral soln ORAL ONE (16:15)
[2017-04-12] MEDS ORDERED: Mylanta II UD 30ml ORAL ONE (16:15)
[2017-04-12] MEDS ORDERED: Capsaicin 0.075% Cream TOPIC ONE (16:30)
[2017-04-12] MEDS ORDERED: PEPCID40 MG PO (16:32)
[2017-04-12] MEDS ORDERED: ZOFRAN ODT4 MG ORAL (16:32)
--- NOTE | 2017-04-12 16:32 | Emergency Room Report ---
History of Present Illness General Chief Complaint: Nausea Source: Patient, Medical Record Present Illness HPI 46-year-old male, history of chronic epigastric pain, chronic marijuana user, p/ w abdominal pain nausea and vomiting for 5 days. Pt reports n/v, 5 episodes of nbnb vomiting, no diarrhea Patient states pain started after vomiting, localized to epigastric, non radiating, burning in nature, intermittent. No relieving or exacerbating factors. Denies fever, chills. No hx of abdominal surgeries. No hx of endoscopies/colonoscopies. Patient is passing gas and stool. Last dosage was this morning States that he has come to the emergency room multiple times for this same issue , the last was one month ago, which is in the emergency room at a [place] Allergies: Coded Allergies: No Known Allergies (Unverified , 04/19/14) Patient History Past Medical History: see triage record Past Surgical History: none Pertinent Family History: none Reviewed Nursing Documentation: PMH: Agreed, PSxH: Agreed Nursing Documentation-PMH Past Medical History: No History, Except For Hx Cardiac Problems: No Hx Cancer: No Hx Gastrointestinal Problems: Yes Hx Neurological Problems: No Review of Systems All Other Systems: negative except mentioned in HPI Physical Exam Vital Signs Date Time Temp Pulse Resp B/P (MAP) Pulse Ox O2 Delivery O2 Flow Rate FiO2 04/12/17 15:50 98.8 113 18 117/84 95 Room Air Sp02 EP Interpretation: reviewed, normal General Appearance: alert, GCS 15, non-toxic, mild distress Head: normocephalic, atraumatic Eyes: bilateral eye normal inspection, bilateral eye PERRL, bilateral eye EOMI ENT: normal ENT inspection, normal pharynx, normal voice, moist mucus membranes Neck: normal inspection, full range of motion, supple Respiratory: normal inspection, lungs clear, normal breath sounds, no respiratory distress, no retraction, no wheezing, speaking full sentences, chest symmetrical Cardiovascular #1: normal inspection, regular rate, rhythm, no edema, normal capillary refill Cardiovascular #2: 2+ radial (R), 2+ radial (L) Gastrointestinal: other - epigastric tenderness no guarding no rigidity Genitourinary: no CVA tenderness Musculoskeletal: normal inspection, back normal, normal range of motion, non- tender Neurologic: normal inspection, alert, oriented x3, responsive, motor strength/ tone normal, sensory intact, normal gait, speech normal Psychiatric: normal inspection, judgement/insight normal, memory normal Skin: normal inspection, normal color, no rash, warm/dry, well hydrated, normal turgor Medical Decision Making Diagnostic Impression: Primary Impression: Nausea and vomiting in adult patient ER Course 46-year-old male presenting with nausea vomiting epigastric pain Differential Diagnosis: Gastritis, gastroenteritis, cholecystitis, appendicitis, diverticulitis, UTI/ pyelo Cyclic vomiting syndrome related to marijuana use At this time abdomen is soft nontender aside from the epigastric region, not likely to have acute intra-abdominal surgical pathology, will hold CT for now. Plan: Basic labs, ua, ekg Pepcid, maalox, pain control, IVF ER course: Patient has remained stable during ED stay. Pain improved. Repeat abdominal exam is nontender. Tolerating PO creatinine similar to previous visits, told to fu with nephrology / pmd Disposition: Patient is to be discharged to home. Prescriptions given are Pepcid, Zofran Instructed to refrain from marijuana use Patient is instructed to follow up with their primary care doctor within 5 days. and nephrology. Strict return precautions discussed with patient such as fever, chills, worsening/severe abdominal pain, nausea, vomiting, black or bloody stools, which may indicate severe illness. Patient verbalizes understanding and agrees with plan. Please note that this Emergency Department Report was dictated using [employer] instructor technology software, occasionally this can lead to erroneous entry secondary to interpretation by the dictation equipment Laboratory Tests Test 04/12/17 17:36 White Blood Count 15.9 K/UL (4.8-10.8) H Red Blood Count 6.94 M/UL (4.70-6.10) H Hemoglobin 18.9 G/DL (14.2-18.0) *H Hematocrit 60.1 % (42.0-52.0) H Mean Corpuscular Volume 87 FL (80-99) Mean Corpuscular Hemoglobin 27.2 PG (27.0-31.0) Mean Corpuscular Hemoglobin Concent 31.5 G/DL (32.0-36.0) L Red Cell Distribution Width 13.4 % (11.6-14.8) Platelet Count 311 K/UL (150-450) Mean Platelet Volume 7.9 FL (6.5-10.1) Neutrophils (%) (Auto) 81.4 % (45.0-75.0) H Lymphocytes (%) (Auto) 10.2 % (20.0-45.0) L Monocytes (%) (Auto) 7.6 % (1.0-10.0) Eosinophils (%) (Auto) 0.0 % (0.0-3.0) Basophils (%) (Auto) 0.7 % (0.0-2.0) Sodium Level 127 MMOL/L (136-145) L Potassium Level 5.1 MMOL/L (3.5-5.1) Chloride Level 81 MMOL/L (98-107) L Carbon Dioxide Level 29 MMOL/L (21-32) Anion Gap 17 mmol/L (5-15) H Blood Urea Nitrogen 73 mg/dL (7-18) H Creatinine 4.1 MG/DL (0.55-1.30) H Estimate Glomerular Filtration Rate 19.3 mL/min (>60) Glucose Level 108 MG/DL (74-106) H Calcium Level 9.3 MG/DL (8.5-10.1) Total Bilirubin 1.1 MG/DL (0.2-1.0) H Direct Bilirubin 0.1 MG/DL (0.0-0.3) Aspartate Amino Transferase (AST) 45 U/L (15-37) H Alanine Aminotransferase (ALT) 34 U/L (12-78) Alkaline Phosphatase 96 U/L (46-116) Total Protein 11.1 G/DL (6.4-8.2) H Albumin 5.7 G/DL (3.4-5.0) H Globulin 5.4 g/dL Albumin/Globulin Ratio 1.1 (1.0-2.7) Lipase 141 U/L (73-393) Last Vital Signs Date Time Temp Pulse Resp B/P (MAP) Pulse Ox O2 Delivery O2 Flow Rate FiO2 04/12/17 15:50 98.8 113 18 117/84 95 Room Air Disposition: HOME, SELF-CARE Condition: Improved Scripts Famotidine (PEPCID) 40 Mg Tablet 40 MG PO QHS, #7 TAB 0 Refills Prov: RetinoSarwat M.D. 04/12/17 Ondansetron Odt* (ZOFRAN ODT*) 4 Mg Tab.rapdis 4 MG ORAL Q6H Y for Nausea & Vomiting, #15 TAB 0 Refills Prov: Sarwat Rivera M.D. 04/12/17 Patient Instructions: Nausea and Vomiting, Adult Sarwat Rivera M.D. Apr 12, 2017 16:32
[2017-04-12 17:30] VITALS: BP 135/102
[2017-04-12] MEDS ORDERED: Haloperidol 5mg/ml Inj IM ONE (17:30)
[2017-04-12 18:08] LABS: BASOPHILS % (AUTO) 0.7 % (0.0-2.0); HEMATOCRIT 60.1 % (42.0-52.0); LYMPHOCYTES % (AUTO) 10.2 % (20.0-45.0); MEAN CORPUSCULAR VOLUME 87 FL (80-99); MONOCYTES % (AUTO) 7.6 % (1.0-10.0); NEUTROPHILS % (AUTO) 81.4 % (45.0-75.0); PLATELET COUNT 311 K/UL (150-450); RED BLOOD COUNT 6.94 M/UL (4.70-6.10); RED CELL DISTRIBUTION WIDTH 13.4 % (11.6-14.8); WHITE BLOOD COUNT 15.9 K/UL (4.8-10.8)
[2017-04-12 18:09] LABS: ANION GAP 17 mmol/L (5-15); BLOOD UREA NITROGEN 73 mg/dL (7-18); CALCIUM 9.3 MG/DL (8.5-10.1); CARBON DIOXIDE 29 MMOL/L (21-32); CHLORIDE 81 MMOL/L (98-107); CREATININE 4.1 MG/DL (0.55-1.30); POTASSIUM 5.1 MMOL/L (3.5-5.1); SODIUM 127 MMOL/L (136-145)
[2017-04-12 18:19] LABS: HEMOGLOBIN 18.9 G/DL (14.2-18.0)
[2017-04-12 18:20] LABS: ALANINE AMINOTRANSFERASE 34 U/L (12-78); ALBUMIN 5.7 G/DL (3.4-5.0); ALBUMIN/GLOBULIN RATIO 1.1 (1.0-2.7); ALKALINE PHOSPHATASE 96 U/L (46-116); ASPARTATE AMINO TRANSFERASE 45 U/L (15-37); BILIRUBIN,TOTAL 1.1 MG/DL (0.2-1.0)
[2017-04-12 18:24] LABS: BILIRUBIN,DIRECT 0.1 MG/DL (0.0-0.3)
[2017-04-12 19:53] VITALS: BP 128/91
[2017-04-12 20:15] VITALS: BP 106/90
== END 2017-04-12 20:15 | disposition home or self-care (01) ==
LOC: EMR 18:30
DX: R11.2 Nausea with vomiting, unspecified (principal); R10.13 Epigastric pain
CPT/HCPCS: 36415; 80053; 82248; 83690; 85025; 96372; 96374; 96375; 99284; J1630; J2405; S0028

== ENCOUNTER 2017-11-10 09:54 | Inpatient (IN) | payer MEDICAID ==
[~2017-11-10] VITALS: Ht 185.4 cm; Wt 72.6 kg
[~2017-11-10 09:54] MED LIST changes: +PEPCID40 MG PO; +ZOFRAN ODT4 MG ORAL
--- NOTE | 2017-11-10 10:22 | Emergency Room Report ---
History of Present Illness General Chief Complaint: Abdominal Pain Source: Patient Present Illness HPI 46-year-old male presents ED complaining of abdominal pain and vomiting since this morning. History of gastric ulcer and cyclical vomiting syndrome. States pain is sharp, 8 out of 10, nonradiating. Notes multiple episodes of vomiting. Denies any diarrhea. Denies any recent marijuana use. Denies chest pain or shortness of breath. Denies fevers or chills. States this feels like his typical flareup. No other aggravating relieving factors. Denies any other associated symptoms Allergies: Coded Allergies: No Known Allergies (Unverified , 04/19/14) Patient History Past Medical History: ulcer Past Surgical History: none Pertinent Family History: none Social History: Denies: smoking, alcohol use, drug use Immunizations: UTD Reviewed Nursing Documentation: PMH: Agreed; PSxH: Agreed Nursing Documentation-PMH Past Medical History: No History, Except For Hx Cardiac Problems: No Hx Cancer: No Hx Gastrointestinal Problems: Yes - gastric ulcer Hx Neurological Problems: No Review of Systems All Other Systems: negative except mentioned in HPI Physical Exam Vital Signs Date Time Temp Pulse Resp B/P (MAP) Pulse Ox O2 Delivery O2 Flow Rate FiO2 11/10/17 09:57 98.1 115 18 113/72 95 Room Air 98.1 Sp02 EP Interpretation: reviewed, normal General Appearance: no apparent distress, alert, GCS 15, non-toxic Head: normocephalic, atraumatic Eyes: bilateral eye normal inspection, bilateral eye PERRL ENT: hearing grossly normal, normal pharynx, no angioedema, normal voice Neck: full range of motion, supple/symm/no masses Respiratory: chest non-tender, lungs clear, normal breath sounds, speaking full sentences Cardiovascular #1: regular rate, rhythm, no edema Cardiovascular #2: 2+ carotid (R), 2+ carotid (L), 2+ radial (R), 2+ radial (L) , 2+ dorsalis pedis (R), 2+ dorsalis pedis (L) Gastrointestinal: normal bowel sounds, soft, non-distended, no guarding, no rebound, tenderness - epigastric Rectal: deferred Genitourinary: normal inspection, no CVA tenderness Musculoskeletal: back normal, gait/station normal, normal range of motion, non- tender Neurologic: alert, oriented x3, responsive, motor strength/tone normal, sensory intact, speech normal Psychiatric: judgement/insight normal, memory normal, mood/affect normal, no suicidal/homicidal ideation Reflexes: 3+ bicep (R), 3+ bicep (L), 3+ tricep (R), 3+ tricep (L), 3+ knee (R) , 3+ knee (L) Skin: normal color, no rash, warm/dry, well hydrated Lymphatic: no adenopathy Medical Decision Making Diagnostic Impression: Primary Impression: Chronic renal insufficiency Qualified Codes: N18.9 - Chronic kidney disease, unspecified Additional Impressions: Intractable vomiting Qualified Codes: G43.A1 - Cyclical vomiting, intractable Cyclic vomiting syndrome Qualified Codes: G43.A1 - Cyclical vomiting, intractable ER Course Hospital Course 46-year-old M presents to ED with epigastric pain with N/V. differential diagnosis: gastritis, SBO, cholecystits Clinical course Patient placed on stretcher. On conveyor monitor. After initial history and physical I ordered labs, IV fluids, zofran, pepcid Labs - noted leukocytosis, Cr 7.9, K ok, LFTs normal patient continues to have vomiting. Still has pain. Patient has been here previously for similar presentation. Last creatinine in March was 4.1 I believe patient should be admitted at this time. Patient will be admitted to Dr. palmer I feel this is a highly complex case requiring extensive working including EKG/ Rhythm strip, Xray/CT/US, Blood/urine lab work, repeat exams while in ED, and administration of strong opiates/narcotics for pain control, admission to hospital or close patient follow up. Diagnosis - cyclical vomiting syndrome, chronic renal insufficiency, intractable vomiting Admitted to floor in serious condition Labs Test 11/10/17 10:15 White Blood Count 19.4 K/UL (4.8-10.8) Red Blood Count 6.92 M/UL (4.70-6.10) Hemoglobin 19.0 G/DL (14.2-18.0) Hematocrit 58.8 % (42.0-52.0) Mean Corpuscular Volume 85 FL (80-99) Mean Corpuscular Hemoglobin 27.5 PG (27.0-31.0) Mean Corpuscular Hemoglobin Concent 32.4 G/DL (32.0-36.0) Red Cell Distribution Width 13.2 % (11.6-14.8) Platelet Count 283 K/UL (150-450) Mean Platelet Volume 9.0 FL (6.5-10.1) Neutrophils (%) (Auto) % (45.0-75.0) Lymphocytes (%) (Auto) % (20.0-45.0) Monocytes (%) (Auto) % (1.0-10.0) Eosinophils (%) (Auto) % (0.0-3.0) Basophils (%) (Auto) % (0.0-2.0) Differential Total Cells Counted 100 Neutrophils % (Manual) 86 % (45-75) Lymphocytes % (Manual) 3 % (20-45) Monocytes % (Manual) 10 % (1-10) Eosinophils % (Manual) 0 % (0-3) Basophils % (Manual) 1 % (0-2) Band Neutrophils 0 % (0-8) Platelet Estimate Adequate Platelet Morphology Normal Red Blood Cell Morphology Normal Sodium Level 131 MMOL/L (136-145) Potassium Level 3.2 MMOL/L (3.5-5.1) Chloride Level 83 MMOL/L (98-107) Carbon Dioxide Level 19 MMOL/L (21-32) Anion Gap 29 mmol/L (5-15) Blood Urea Nitrogen 67 mg/dL (7-18) Creatinine 7.9 MG/DL (0.55-1.30) Estimat Glomerular Filtration Rate 9.0 mL/min (>60) Glucose Level 112 MG/DL (74-106) Calcium Level 10.5 MG/DL (8.5-10.1) Total Bilirubin 0.8 MG/DL (0.2-1.0) Aspartate Amino Transf (AST/SGOT) 25 U/L (15-37) Alanine Aminotransferase (ALT/SGPT) 31 U/L (12-78) Alkaline Phosphatase 96 U/L (46-116) Total Protein 11.7 G/DL (6.4-8.2) Albumin 6.1 G/DL (3.4-5.0) Globulin 5.6 g/dL Albumin/Globulin Ratio 1.1 (1.0-2.7) Lipase 113 U/L (73-393) Last Vital Signs Date Time Temp Pulse Resp B/P (MAP) Pulse Ox O2 Delivery O2 Flow Rate FiO2 11/10/17 09:57 98.1 115 18 113/72 95 Room Air 98.1 Status: improved Disposition: ADMITTED INPATIENT Condition: Serious Oziel Garcia MD Nov 10, 2017 10:22
[2017-11-10 10:24] VITALS: BP 113/72
[2017-11-10 10:32] LABS: HEMATOCRIT 58.8 % (42.0-52.0); MEAN CORPUSCULAR VOLUME 85 FL (80-99); PLATELET COUNT 283 K/UL (150-450); RED BLOOD COUNT 6.92 M/UL (4.70-6.10); RED CELL DISTRIBUTION WIDTH 13.2 % (11.6-14.8); WHITE BLOOD COUNT 19.4 K/UL (4.8-10.8)
[2017-11-10 10:44] LABS: ANION GAP 29 mmol/L (5-15); BLOOD UREA NITROGEN 67 mg/dL (7-18); CALCIUM 10.5 MG/DL (8.5-10.1); CARBON DIOXIDE 19 MMOL/L (21-32); CHLORIDE 83 MMOL/L (98-107); CREATININE 7.9 MG/DL (0.55-1.30); POTASSIUM 3.2 MMOL/L (3.5-5.1); SODIUM 131 MMOL/L (136-145)
[2017-11-10] MEDS ORDERED: Dicyclomine HCl 10mg/5ml oral soln ORAL ONE (10:45)
[2017-11-10] MEDS ORDERED: Lidocaine 2% Visc 15ml soln ORAL ONE (10:45)
[2017-11-10] MEDS ORDERED: Mylanta II UD 30ml ORAL ONE (10:45)
[2017-11-10] MEDS ORDERED: Morphine Sulfate 4mg/ml Inj (IV USE ONLY) IVP ONE ×2 (10:45→12:30)
[2017-11-10 10:48] LABS: ALANINE AMINOTRANSFERASE 31 U/L (12-78); ALBUMIN 6.1 G/DL (3.4-5.0); ALBUMIN/GLOBULIN RATIO 1.1 (1.0-2.7); ALKALINE PHOSPHATASE 96 U/L (46-116); ASPARTATE AMINO TRANSFERASE 25 U/L (15-37); BILIRUBIN,TOTAL 0.8 MG/DL (0.2-1.0)
[2017-11-10 12:07] VITALS: BP 168/99
[2017-11-10 13:07] VITALS: BP 155/97
--- NOTE | 2017-11-10 13:51 | Consultation ---
Consult Note Consult Note asked to eval for renal failure 46-year-old male presents ED complaining of abdominal pain and vomiting since this morning. History of gastric ulcer and cyclical vomiting syndrome. States pain is sharp, 8 out of 10, nonradiating. Notes multiple episodes of vomiting. Denies any diarrhea. Denies any recent marijuana use. Denies chest pain or shortness of breath. Denies fevers or chills. States this feels like his typical flareup. No other aggravating relieving factors. Denies any other associated symptoms Allergies: Coded Allergies: No Known Allergies (Unverified , 04/19/14) Patient History Past Medical History: ulcer Hx Gastrointestinal Problems: Yes - gastric ulcer interviewed examined data reviewed Assessment/Plan Acute Renal Failure Likely Acute , super Imposed on chronic HTN OOC Abdominal pain Intractuble vomiting Plan: IV Fluid- IV protonix- IV Reglan BP Meds Monitor renal parameters Avoid Nephrotoxics Per orders urine tox screen and UA Junior Chow MD Nov 10, 2017 13:51
[2017-11-10] MEDS ORDERED: Metoclopramide 10mg/2ml Inj IVP PRN ×2 (14:00→15:30)
[2017-11-10 14:28] VITALS: BP 164/111
[2017-11-10] MEDS: Morphine Sulfate 2mg/ml Inj(IV/IM USE ONLY) IVP PRN ×2 (15:08→23:10)
[2017-11-10] MEDS ORDERED: HydrALAZINE 25mg tab ORAL PRN (15:27)
[2017-11-10] MEDS: D5NS 1,000 ML IV SCH (15:38)
--- NOTE | 2017-11-10 15:40 | Diagnostic Imaging Report ---
Indication: Acute renal failure Technique: Grayscale and duplex images of the kidneys, retroperitoneum, and bladder were obtained. Comparison: none Findings: Right kidney measures 10.4 cm in length. Left kidney measures 10.9 cm in length. Both kidneys demonstrate increased echogenicity. No hydronephrosis. There are bilateral renal cysts. Shadowing in the left renal sinus could indicate small calyceal calculi. Normal inferior vena cava. Bladder is normal. Impression: Increased bilateral renal echogenicity, consistent with medical renal disease Negative for hydronephrosis Possible left renal calyceal calculi, versus artifact (note that no calculi are evident in the left renal collecting system on prior CT scan of 2016) Incidental finding bilateral renal cysts .
[2017-11-10 16:00] VITALS: BP 134/89
[2017-11-10] MEDS: Tamsulosin 0.4mg cap ORAL SCH (17:38)
[2017-11-10] MEDS ORDERED: HydrALAZINE 25mg tab ORAL SCH (18:00)
[2017-11-10 18:25] LABS: APPEARANCE,URINE CLEAR; BILIRUBIN, URINE NEGATIVE (NEGATIVE); COLOR,URINE PALE YELLOW; GLUCOSE, URINE (UA) NEGATIVE (NEGATIVE); KETONES,URINE NEGATIVE (NEGATIVE); LEUKOCYTE ESTERASE ,URINE NEGATIVE (NEGATIVE); NITRITE,URINE NEGATIVE (NEGATIVE); PH,URINE 5 (4.5-8.0); PROTEIN,URINE 3+ (NEGATIVE); UROBILINOGEN,URINE NORMAL MG/DL (0.0-1.0)
[2017-11-10 20:00] VITALS: BP 131/90
[2017-11-10] MEDS: Pantoprazole Inj IVP SCH (21:19)
[2017-11-11] VITALS: BP 111/71
[2017-11-11] MEDS: D5NS 1,000 ML IV SCH ×2 (01:44→13:17)
[2017-11-11 04:00] VITALS: BP 112/75
[2017-11-11 06:21] LABS: BASOPHILS % (AUTO) 0.4 % (0.0-2.0); EOSINOPHILS % (AUTO) 0.3 % (0.0-3.0); HEMATOCRIT 49.4 % (42.0-52.0); HEMOGLOBIN 16.4 G/DL (14.2-18.0); LYMPHOCYTES % (AUTO) 10.7 % (20.0-45.0); MEAN CORPUSCULAR VOLUME 84 FL (80-99); MONOCYTES % (AUTO) 10.6 % (1.0-10.0); PLATELET COUNT 195 K/UL (150-450); RED CELL DISTRIBUTION WIDTH 12.8 % (11.6-14.8); WHITE BLOOD COUNT 13.5 K/UL (4.8-10.8)
[2017-11-11 07:04] LABS: ALANINE AMINOTRANSFERASE 28 U/L (12-78); ALBUMIN 4.1 G/DL (3.4-5.0); ALKALINE PHOSPHATASE 67 U/L (46-116); ANION GAP 11 mmol/L (5-15); ASPARTATE AMINO TRANSFERASE 24 U/L (15-37); BILIRUBIN,TOTAL 1.2 MG/DL (0.2-1.0); BLOOD UREA NITROGEN 51 mg/dL (7-18); CALCIUM 8.6 MG/DL (8.5-10.1); CARBON DIOXIDE 27 MMOL/L (21-32); CHLORIDE 93 MMOL/L (98-107); CHOLESTEROL 207 MG/DL (< 200); CREATININE 2.4 MG/DL (0.55-1.30); HDL CHOLESTEROL 67 MG/DL (40-60); POTASSIUM 3.1 MMOL/L (3.5-5.1); SODIUM 131 MMOL/L (136-145); TRIGLYCERIDES 65 MG/DL (30-150)
[2017-11-11 07:06] LABS: PHOSPHORUS 3.3 MG/DL (2.5-4.9)
[2017-11-11 07:09] LABS: BILIRUBIN,DIRECT 0.2 MG/DL (0.0-0.3)
[2017-11-11] MEDS: Morphine Sulfate 2mg/ml Inj(IV/IM USE ONLY) IVP PRN (07:19)
[2017-11-11 08:00] VITALS: BP 148/51
[2017-11-11] MEDS: Pantoprazole Inj IVP SCH (09:09)
[2017-11-11] MEDS: Tamsulosin 0.4mg cap ORAL SCH ×2 (09:09→17:48)
[2017-11-11] MEDS ORDERED: Hydrocortisone 1% Cr 15gm TOPIC PRN ×2 (11:00→13:00)
[2017-11-11] MEDS ORDERED: Norco 5mg/325mg tab ORAL PRN (11:45)
--- NOTE | 2017-11-11 11:48 | Nephrology Progress Note ---
Assessment/Plan Problem List: (1) Acute renal insufficiency (2) Dehydration (3) Intractable vomiting (4) Cannabis abuse with cannabis-induced disorder (5) poly substance abuse Assessment Acute Renal Failure Likely Acute , super Imposed on chronic 3+ Proteinuria HTN OOC Abdominal pain Intractuble vomiting Drug abuse , per urine for tox Plan Plan: IV Fluid- PO protonix- PO Reglan BP Meds adjustment Monitor renal parameters Avoid Nephrotoxics Per orders 24 h urine proteins Subjective ROS Limited/Unobtainable: No Constitutional: Reports: malaise Objective Objective Last 24 Hour Vital Signs Date Time Temp Pulse Resp B/P (MAP) Pulse Ox O2 Delivery O2 Flow Rate FiO2 11/11/17 09:56 Room Air 11/11/17 07:49 97.2 11/11/17 06:18 124/68 11/11/17 04:00 97.2 70 20 112/75 (87) 100 97.2 11/11/17 00:00 97.5 67 20 111/71 (84) 97 97.5 11/10/17 21:20 131/90 11/10/17 21:00 Room Air 11/10/17 20:00 98.2 83 20 131/90 (104) 98 98.2 11/10/17 16:00 98.4 71 20 134/89 (104) 95 98.4 11/10/17 15:38 134/79 11/10/17 14:28 98.5 71 20 164/111 (128) 95 98.5 11/10/17 13:57 Room Air 11/10/17 13:15 208.6 71 12 155/97 98 Room Air 208.6 11/10/17 13:07 208.6 71 12 155/97 98 Room Air 208.6 11/10/17 12:33 98.1 11/10/17 12:07 70 12 168/99 98 Room Air Intake and Output 11/10/17 11/11/17 19:00 07:00 Intake Total 1660 ml 400 ml Output Total 1050 ml Balance 1660 ml -650 ml Intake Oral 660 ml IV Total 1000 ml 400 ml Output Urine Total 1050 ml Laboratory Tests 11/10/17 17:41: Urine Color Pale yellow, Urine Appearance Clear, Urine pH 5, Urine Specific [place] 1.025, Urine Protein 3+H, Urine Glucose (UA) Negative, Urine Ketones Negative, Urine Occult Blood 3+H, Urine Nitrite Negative, Urine Bilirubin Negative, Urine Urobilinogen Normal, Urine Leukocyte Esterase Negative, Urine RBC 2-4H, Urine WBC 0-2, Urine Squamous Epithelial Cells None, Urine Amorphous Sediment FewH, Urine Bacteria Few, Urine Opiates Screen PositiveH, Urine Barbiturates Screen Negative, Phencyclidine (PCP) Screen Negative, Urine Amphetamines Screen Negative, Urine Benzodiazepines Screen Negative, Urine Cocaine Screen Negative, Urine Marijuana (THC) Screen PositiveH 11/11/17 04:29: White Blood Count 13.5H, Red Blood Count 5.90, Hemoglobin 16.4, Hematocrit 49.4 , Mean Corpuscular Volume 84, Mean Corpuscular Hemoglobin 27.8, Mean Corpuscular Hemoglobin Concent 33.2, Red Cell Distribution Width 12.8, Platelet Count 195, Mean Platelet Volume 8.4, Neutrophils (%) (Auto) 78.0H, Lymphocytes ( %) (Auto) 10.7L, Monocytes (%) (Auto) 10.6H, Eosinophils (%) (Auto) 0.3, Basophils (%) (Auto) 0.4, Sodium Level 131L, Potassium Level 3.1L, Chloride Level 93L, Carbon Dioxide Level 27, Anion Gap 11, Blood Urea Nitrogen 51H, Creatinine 2.4#H, Estimat Glomerular Filtration Rate 35.6, Glucose Level 129H, Hemoglobin A1c 6.0, Uric Acid 7.4H, Calcium Level 8.6, Phosphorus Level 3.3, Magnesium Level 2.6H, Total Bilirubin 1.2H, Direct Bilirubin 0.2, Aspartate Amino Transf (AST/SGOT) 24, Alanine Aminotransferase (ALT/SGPT) 28, Alkaline Phosphatase 67, Troponin I 0.004, C-Reactive Protein, Quantitative < 0.4, Pro-B- Type Natriuretic Peptide 98, Total Protein 8.1#, Albumin 4.1, Globulin 4.0, Albumin/Globulin Ratio 1.0, Triglycerides Level 65, Cholesterol Level 207H, LDL Cholesterol 130H, HDL Cholesterol 67H, Cholesterol/HDL Ratio 3.1L, Lipase 73, Thyroid Stimulating Hormone (TSH) 0.485 Height (Feet): 6 Height (Inches): 1.00 Weight (Pounds): 160 General Appearance: no apparent distress Cardiovascular: normal rate Respiratory/Chest: lungs clear Abdomen: soft Junior Chow MD Nov 11, 2017 11:48
[2017-11-11 12:00] VITALS: BP 137/79
[2017-11-11] MEDS: Docusate 100mg cap ORAL SCH ×2 (13:14→17:48)
[2017-11-11] MEDS ORDERED: Metoclopramide 10mg/2ml Inj IVP PRN (13:42)
--- NOTE | 2017-11-11 14:58 | GI Initial Consult Note ---
History of Present Illness General Date patient seen: Nov 11, 2017 Time patient seen: 10:00 Reason for Hospitalization: Abdominal Pain Referring physician: LIANE FLORES Reason for Consultation: CYCLIC VOMITING Present Illness HPI 46-year-old male presents ED complaining of abdominal pain and vomiting since this morning. History of gastric ulcer and cyclical vomiting syndrome. States pain is sharp, 8 out of 10, nonradiating. Notes multiple episodes of vomiting. Denies any diarrhea. Denies any recent marijuana use. Denies chest pain or shortness of breath. Denies fevers or chills. States this feels like his typical flareup. No other aggravating relieving factors. Denies any other associated symptoms. GI consulted for vomiting. Pt seen, awake A&Ox4 NAD c/o of episode of emesis last night. Ambulatory, had taken a shower this morning. Patient aware he has history of cyclic vomiting syndrome 2/2 to chronic marijuana use. Per patient, he had a recent EGD x 3 months, dx with either a gastric vs duodenal ulcer. Presents today c/o of abdominal pain and N/V. Presents with leukocytosis and hemoconcentration. Home Meds Active Scripts Famotidine (PEPCID) 40 Mg Tablet, 40 MG PO QHS, #7 TAB 0 Refills Prov:Sarwat Rivera M.D. 04/12/17 Ondansetron Odt* (ZOFRAN ODT*) 4 Mg Tab.rapdis, 4 MG ORAL Q6H PRN for Nausea & Vomiting, #15 TAB 0 Refills Prov:Sarwat Rivera M.D. 04/12/17 Reported Medications Omeprazole Magnesium (OMEPRAZOLE MAGNESIUM) 20 Mg Capsule.dr, 20 MG PO BID, CAP 03/09/17 Ondansetron Hcl* (ZOFRAN*) 8 Mg Tablet, 8 MG ORAL Q6H PRN for Nausea & Vomiting , #4 TAB 0 Refills 03/09/17 Metoclopramide Hcl* (METOCLOPRAMIDE HCL*) 5 Mg Tablet, 5 MG ORAL QID, TAB 03/09/17 Med list reviewed/reconciled: Yes Allergies: Coded Allergies: No Known Allergies (Unverified , 04/19/14) Patient History History Provided By: Patient, Medical Record [facility] Narrative Past Medical History: ulcer Past Surgical History: none Pertinent Family History: none Social History: Denies: smoking, alcohol use, drug use Immunizations: UTD Reviewed Nursing Documentation: PMH: Agreed; PSxH: Agreed Nursing Documentation-PMH Past Medical History: No History, Except For Hx Cardiac Problems: No Hx Cancer: No Hx Gastrointestinal Problems: Yes - gastric ulcer Hx Neurological Problems: No Social History: Reports: smoking, alcohol use, drug use Review of Systems All Other Systems: negative except mentioned in HPI Physical Exam Vital Signs Date Time Temp Pulse Resp B/P (MAP) Pulse Ox O2 Delivery O2 Flow Rate FiO2 11/10/17 09:57 98.1 115 18 113/72 95 Room Air 98.1 Sp02 EP Interpretation: reviewed, normal Labs Laboratory Tests Test 11/10/17 17:41 11/11/17 04:29 Urine Color Pale yellow Urine Appearance Clear Urine pH 5 (4.5-8.0) Urine Specific [place] 1.025 (1.005-1.035) Urine Protein 3+ (NEGATIVE) H Urine Glucose (UA) Negative (NEGATIVE) Urine Ketones Negative (NEGATIVE) Urine Occult Blood 3+ (NEGATIVE) H Urine Nitrite Negative (NEGATIVE) Urine Bilirubin Negative (NEGATIVE) Urine Urobilinogen Normal MG/DL (0.0-1.0) Urine Leukocyte Esterase Negative (NEGATIVE) Urine RBC 2-4 /HPF (0 - 0) H Urine WBC 0-2 /HPF (0 - 0) Urine Squamous Epithelial Cells None /LPF (NONE/OCC) Urine Amorphous Sediment Few /LPF (NONE) H Urine Bacteria Few /HPF (NONE) Urine Opiates Screen Positive (NEGATIVE) H Urine Barbiturates Screen Negative (NEGATIVE) Phencyclidine (PCP) Screen Negative (NEGATIVE) Urine Amphetamines Screen Negative (NEGATIVE) Urine Benzodiazepines Screen Negative (NEGATIVE) Urine Cocaine Screen Negative (NEGATIVE) Urine Marijuana (THC) Screen Positive (NEGATIVE) H White Blood Count 13.5 K/UL (4.8-10.8) H Red Blood Count 5.90 M/UL (4.70-6.10) Hemoglobin 16.4 G/DL (14.2-18.0) Hematocrit 49.4 % (42.0-52.0) Mean Corpuscular Volume 84 FL (80-99) Mean Corpuscular Hemoglobin 27.8 PG (27.0-31.0) Mean Corpuscular Hemoglobin Concent 33.2 G/DL (32.0-36.0) Red Cell Distribution Width 12.8 % (11.6-14.8) Platelet Count 195 K/UL (150-450) Mean Platelet Volume 8.4 FL (6.5-10.1) Neutrophils (%) (Auto) 78.0 % (45.0-75.0) H Lymphocytes (%) (Auto) 10.7 % (20.0-45.0) L Monocytes (%) (Auto) 10.6 % (1.0-10.0) H Eosinophils (%) (Auto) 0.3 % (0.0-3.0) Basophils (%) (Auto) 0.4 % (0.0-2.0) Sodium Level 131 MMOL/L (136-145) L Potassium Level 3.1 MMOL/L (3.5-5.1) L Chloride Level 93 MMOL/L (98-107) L Carbon Dioxide Level 27 MMOL/L (21-32) Anion Gap 11 mmol/L (5-15) Blood Urea Nitrogen 51 mg/dL (7-18) H Creatinine 2.4 MG/DL (0.55-1.30) #H Estimat Glomerular Filtration Rate 35.6 mL/min (>60) Glucose Level 129 MG/DL (74-106) H Hemoglobin A1c 6.0 % (4.3-6.0) Uric Acid 7.4 MG/DL (2.6-7.2) H Calcium Level 8.6 MG/DL (8.5-10.1) Phosphorus Level 3.3 MG/DL (2.5-4.9) Magnesium Level 2.6 MG/DL (1.8-2.4) H Total Bilirubin 1.2 MG/DL (0.2-1.0) H Direct Bilirubin 0.2 MG/DL (0.0-0.3) Aspartate Amino Transf (AST/SGOT) 24 U/L (15-37) Alanine Aminotransferase (ALT/SGPT) 28 U/L (12-78) Alkaline Phosphatase 67 U/L (46-116) Troponin I 0.004 ng/mL (0.000-0.056) C-Reactive Protein, Quantitative < 0.4 mg/dL (0.00-0.90) Pro-B-Type Natriuretic Peptide 98 pg/mL (0-125) Total Protein 8.1 G/DL (6.4-8.2) # Albumin 4.1 G/DL (3.4-5.0) Globulin 4.0 g/dL Albumin/Globulin Ratio 1.0 (1.0-2.7) Triglycerides Level 65 MG/DL (30-150) Cholesterol Level 207 MG/DL (< 200) H LDL Cholesterol 130 mg/dL (<100) H HDL Cholesterol 67 MG/DL (40-60) H Cholesterol/HDL Ratio 3.1 (3.3-4.4) L Lipase 73 U/L (73-393) Thyroid Stimulating Hormone (TSH) 0.485 uiU/mL (0.358-3.740) General Appearance: well appearing, no apparent distress, alert Head: normocephalic EENT: PERRL/EOMI, normal ENT inspection Neck: supple Respiratory: normal breath sounds, no respiratory distress Cardiovascular: normal rate Gastrointestinal: normal inspection, non tender, soft, normal bowel sounds, non -distended Rectal: deferred Genitourinary: deferred Musculoskeletal: normal inspection, back normal Neurologic: normal inspection, alert, oriented x3, responsive Psychiatric: normal inspection, judgement/insight normal, memory normal Skin: normal inspection, normal color, no rash, warm/dry, palpation normal, well hydrated Lymphatic: normal inspection, no adenopathy Current Medications Current Medications Medications (Trade) Dose Ordered Sig/Mitchell Route PRN Reason Start Time Stop Time Status Last Admin Dose Admin Acetaminophen (Tylenol) 650 mg EVERY 8 HOURS PRN ORAL Mild Pain/Temp > 100.5 11/10/17 14:15 12/10/17 14:14 Acetaminophen/ Hydrocodone Bitart ([place] 5/325) 1 tab Q4H PRN ORAL Moderate Pain (Pain Scale 4-6) 11/11/17 11:45 11/18/17 11:44 Clonidine HCl (Catapres Tab) 0.1 mg EVERY 8 HOURS ORAL 11/10/17 22:00 12/10/17 21:59 11/11/17 13:14 Dextrose/Sodium Chloride 1,000 ml @ 100 mls/hr Q10H IV 11/10/17 15:30 12/10/17 15:29 11/11/17 13:17 Docusate Sodium (Colace) 100 mg THREE TIMES A DAY ORAL 11/11/17 13:00 12/11/17 12:59 11/11/17 13:14 Hydralazine HCl (Apresoline) 25 mg Q4H PRN ORAL bp over 160 syst 11/10/17 15:27 12/10/17 15:26 Hydrocortisone (Hydrocortisone) 1 applic Q6H PRN TOPIC Itching 11/11/17 13:00 12/11/17 12:59 11/11/17 13:13 Metoclopramide HCl (Reglan) 10 mg Q6H PRN IVP Nausea & Vomiting 11/11/17 13:42 12/10/17 13:59 Metoclopramide HCl (Reglan) 10 mg THREE TIMES A DAY ORAL 11/11/17 14:00 12/11/17 13:59 Pantoprazole (Protonix) 40 mg DAILY ORAL 11/12/17 09:00 12/12/17 08:59 Tamsulosin HCl (Flomax) 0.4 mg BID ORAL 11/10/17 18:00 12/10/17 17:59 11/11/17 09:09 GI: Plan Problems: (1) GI symptoms (2) Abdominal pain (3) Intractable abdominal pain (4) Gastritis (5) Drug-seeking behavior (6) Cyclic vomiting syndrome (7) Cannabis abuse with cannabis-induced disorder Plan EGD x3 months >> per patient had ulcer. symptomatic treatment at this time advanced to regular diet, tolerated reglan prn for persistent vomiting IV/PO hydration electrolyte correction bowel regime ppi maintenance Carafate 1g BID given history of ulcer fu labs Discussed with Dr. Fuentes. Thank you for this patient referral, we will follow. The patient was seen and examined at bedside and all new and available data was reviewed in the patients chart. I agree with the above findings, impression and plan. (Patient seen earlier today. Signature stamp does not reflect patient encounter time.). - MD Holly Mcgraw,[facility] RN FIRST ASSISTANT Nov 11, 2017 14:58
--- NOTE | 2017-11-11 15:49 | History & Physical ---
History and Physical History & Physicial seen and examined. Dict in progress Nancy Chi MD Nov 11, 2017 15:49
--- NOTE | 2017-11-11 15:51 | General Progress Note ---
Assessment/Plan Assessment/Plan Dictated completed. patient seen and examined. Subjective Allergies: Coded Allergies: No Known Allergies (Unverified , 04/19/14) Objective Last 24 Hour Vital Signs Date Time Temp Pulse Resp B/P (MAP) Pulse Ox O2 Delivery O2 Flow Rate FiO2 11/11/17 13:14 137/74 11/11/17 12:00 97.8 79 19 137/79 (98) 100 97.8 11/11/17 09:56 Room Air 11/11/17 08:00 97.9 70 20 148/51 (83) 100 97.9 11/11/17 07:49 97.2 11/11/17 06:18 124/68 11/11/17 04:00 97.2 70 20 112/75 (87) 100 97.2 11/11/17 00:00 97.5 67 20 111/71 (84) 97 97.5 11/10/17 21:20 131/90 11/10/17 21:00 Room Air 11/10/17 20:00 98.2 83 20 131/90 (104) 98 98.2 11/10/17 16:00 98.4 71 20 134/89 (104) 95 98.4 Intake and Output 11/10/17 11/11/17 19:00 07:00 Intake Total 1660 ml 400 ml Output Total 1050 ml Balance 1660 ml -650 ml Intake Oral 660 ml IV Total 1000 ml 400 ml Output Urine Total 1050 ml Laboratory Tests 11/10/17 17:41: Urine Color Pale yellow, Urine Appearance Clear, Urine pH 5, Urine Specific [place] 1.025, Urine Protein 3+H, Urine Glucose (UA) Negative, Urine Ketones Negative, Urine Occult Blood 3+H, Urine Nitrite Negative, Urine Bilirubin Negative, Urine Urobilinogen Normal, Urine Leukocyte Esterase Negative, Urine RBC 2-4H, Urine WBC 0-2, Urine Squamous Epithelial Cells None, Urine Amorphous Sediment FewH, Urine Bacteria Few, Urine Opiates Screen PositiveH, Urine Barbiturates Screen Negative, Phencyclidine (PCP) Screen Negative, Urine Amphetamines Screen Negative, Urine Benzodiazepines Screen Negative, Urine Cocaine Screen Negative, Urine Marijuana (THC) Screen PositiveH 11/11/17 04:29: White Blood Count 13.5H, Red Blood Count 5.90, Hemoglobin 16.4, Hematocrit 49.4 , Mean Corpuscular Volume 84, Mean Corpuscular Hemoglobin 27.8, Mean Corpuscular Hemoglobin Concent 33.2, Red Cell Distribution Width 12.8, Platelet Count 195, Mean Platelet Volume 8.4, Neutrophils (%) (Auto) 78.0H, Lymphocytes ( %) (Auto) 10.7L, Monocytes (%) (Auto) 10.6H, Eosinophils (%) (Auto) 0.3, Basophils (%) (Auto) 0.4, Sodium Level 131L, Potassium Level 3.1L, Chloride Level 93L, Carbon Dioxide Level 27, Anion Gap 11, Blood Urea Nitrogen 51H, Creatinine 2.4#H, Estimat Glomerular Filtration Rate 35.6, Glucose Level 129H, Hemoglobin A1c 6.0, Uric Acid 7.4H, Calcium Level 8.6, Phosphorus Level 3.3, Magnesium Level 2.6H, Total Bilirubin 1.2H, Direct Bilirubin 0.2, Aspartate Amino Transf (AST/SGOT) 24, Alanine Aminotransferase (ALT/SGPT) 28, Alkaline Phosphatase 67, Troponin I 0.004, C-Reactive Protein, Quantitative < 0.4, Pro-B- Type Natriuretic Peptide 98, Total Protein 8.1#, Albumin 4.1, Globulin 4.0, Albumin/Globulin Ratio 1.0, Triglycerides Level 65, Cholesterol Level 207H, LDL Cholesterol 130H, HDL Cholesterol 67H, Cholesterol/HDL Ratio 3.1L, Lipase 73, Thyroid Stimulating Hormone (TSH) 0.485 Height (Feet): 6 Height (Inches): 1.00 Weight (Pounds): 160 Nancy Chi MD Nov 11, 2017 15:51
[2017-11-11 16:00] VITALS: BP 128/77
[2017-11-11] MEDS ORDERED: Sucralfate 1gm tab ORAL SCH (18:00)
[2017-11-11] MEDS ORDERED: D5NS 1000ml IV ONE (18:44)
--- NOTE | 2017-11-12 04:46 | History and Physical Report ---
DATE OF ADMISSION: 11/10/2017 HISTORY OF PRESENT ILLNESS: The patient is a pleasant 46-year-old, male with a history of cyclic vomiting probably GERD. The patient presented with recurrence of this same problem starting 2 days ago. He denies any alleviating or aggravating factors. He denies any abnormal bleeding. He gives prior history of gastritis. At the time of evaluation, the patient denies any blurry vision or headaches. Denies any swelling on the extremities. REVIEW OF SYSTEMS: Reviewed. All pertinent negatives are reviewed as follows. Initial evaluation in the emergency room shows the blood pressure 113/72, pulse rate of 110, respiratory rate of 18, and pulse oximetry of 98% on room. Head and neck, atraumatic and normocephalic. Initial blood work in the ER shows a WBC of 19,000 and a hemoglobin of 19 with platelet count of 283. Otherwise, shows a creatinine of 7.9. PAST SURGICAL HISTORY: Denies. ALLERGIES: NKDA. FAMILY HISTORY: Noncontributory. SOCIAL HISTORY: Denies history of illicit drug abuse. Positive for smoking THC, otherwise denies any IV drug abuse. PHYSICAL EXAMINATION: VITAL SIGNS: Blood pressure 120/70, pulse oximetry 98% on room, respiratory rate 18, and temperature 98.2 degrees. HEAD AND NECK: Atraumatic and normocephalic. CHEST: Clear to auscultation. HEART: S1 and S2. Regular rate and rhythm. ABDOMEN: Soft and nontender. MUSCULOSKELETAL: No gross focal motor deficit. NEUROLOGY: The patient awake, alert and oriented x3. MEDICATIONS: Current medications including, but not limited to, Flomax, sucralfate, Flagyl and Reglan p.r.n., hydralazine p.r.n. LABORATORY AND DIAGNOSTIC DATA: Lab dated 11/10/2017 shows sodium 131, potassium of 3.2, BUN of 67, creatinine 7.9. AST and ALT within normal limits. Total cholesterol of 200. Lipase 113. WBC 19.4, hemoglobin 19 and platelets 283. Urine analysis shows a gravity of 1.025 and no wbc's. ASSESSMENT AND PLAN: 1. Acute on chronic cyclic vomitus disorder. 2. Dehydration.D 3. Leukocytosis with no evidence of acute active infection. 4. Hyponatremia. 5. Hypokalemia. 6. Acute renal failure. 7. Hypercalcemia. 8. Hyperlipidemia. 9. GI and DVT prophylaxis. PLAN OF CARE: Nephrology and GI have been consulted. We will keep the patient NPO. We will continue with the IV supplementation and hydration. Nancy Chi M.D. DR: ASAD JOB#: [id number] CC:
--- NOTE | 2017-11-12 07:59 | Discharge Summary ---
Discharge Summary Discharge Summary _ DATE OF ADMISSION: 11/10/2017 DATE OF DISCHARGE: 11/11/2017. Patient signed AGAINST MEDICAL ADVICE REASON FOR ADMISSION: 46 years old male with past medical history significant for gastric ulcer , hypertension ,cyclic vomiting syndrome ,presented to emergency department complaining of abdominal pain and vomiting for one day. Pain reported to be sharp, nonradiating. Patient noted multiply episodes of vomiting, no hematemesis. He denied diarrhea. No recent marijuana use. No chest pain or shortness of breath. No fever no chills. Patient felt that it was his usual flare up . Vital signs revealed tachycardia ,no fever. Laboratory workup revealed leukocytosis with WBC 19.4. Sodium 131, potassium 3.2, anion gap 29. BUN 67 , creatinine 7.9. Calcium 10.5 Urinalysis +3 protein, +3 occult blood, no evidence of UTI . LFT and lipase within normal limits. Patient admitted with diagnoses of acute on chronic cyclic vomiting disorder, dehydration ,leukocytosis, hyponatremia, hypokalemia, acute renal failure , hypercalcemia. CONSULTANTS: GI specialist Dr. Fuentes damper worker Dr. Chow [facility] COURSE: Patient admitted to medical surgical floor. Patient kept nothing by mouth and started on IV hydration. Nephrology and GI specialist consults were requested. Renal parameters and electrolytes were closely monitored. Electrolytes corrected as needed. Nephrotoxins were avoided. Lamination Inspector closely followed. Renal ultrasound revealed increased bilateral renal echogenicity, consistent with medical renal disease. No hydronephrosis. Possible left calculus versus artifact. Incidental finding of bilateral renal cysts. According to damper worker, patient had acute superimposed on chronic renal failure. Next day with IV hydration, BUN down to 51 and creatinine 2.4. Acute renal failure was precipitated by dehydration due to severe vomiting. GI specialist closely followed. Symptomatic treatment provided. Diet was advanced as tolerated. Antiemetic /Reglan continued for persistent vomiting. Oral hydration oral was encouraged along with continued IV hydration. Patient was on PPI. Patient was on maintenance dose of Carafate , given history of gastric ulcer. Pain management was addressed. Supportive care provided. Urine toxicology screen positive for marijuana and opiates. Troponin negative TSH within normal limits. Lipid panel revealed elevated total cholesterol 207 and LDL 130. Patient was educated on low-fat low-cholesterol diet and lifestyle modifications. Patient recommended to repeat repeat lipid panel in 3 months, and if still abnormal, consider to start statin. Blood pressure regimen was adjusted to keep blood pressure under control. Blood pressures stabilized. DVT prophylaxis provided. Leukocytosis down to 13.5. Leucocytosis was likely reactive. No fever. No evidence of infection. CRP negative Patient was able to tolerate diet, no further vomiting episodes. Patient clinically felt better and decided to sign AGAINST MEDICAL ADVICE. The risks and consequences of signing AGAINST MEDICAL ADVICE were discussed with patient in detail. Patient verbalized understanding, nevertheless signed AMA form and left. FINAL DIAGNOSES: Acute on chronic cyclic vomiting disorder Acute ,superimposed on chronic, renal failure Dehydration Leukocytosis ( no evidence of infection, [id number], [id number] [id number]) Electrolyte abnormalities( hyponatremia hypokalemia) Hypertension out of control Gastritis Cannabis abuse with cannabis induced disorder Drug-seeking behavior I have been assigned to dictate discharge summary for this account. I was not involved in the patient's management. Sophie Magaña NP Nov 12, 2017 07:58
[2017-11-12] MEDS ORDERED: PRILOSEC OTC20 MG ORAL (22:01)
== END 2017-11-11 18:45 | disposition left against medical advice (07) | DRG 469 ==
LOC: EMR 11:45 → EDBEDREQSVC 12:00 → EDBEDREQ 12:01 → 4E 12:15 → ENRESERV 12:19 → EDBEDREQ 12:24
DX: N17.9 Acute kidney failure, unspecified (principal); E83.52 Hypercalcemia; E86.0 Dehydration; F50.89 Other specified eating disorder; F12.19 Cannabis abuse with unspecified cannabis-induced disorder; Z76.5 Malingerer [conscious simulation]; K29.70 Gastritis, unspecified, without bleeding; E87.1 Hypo-osmolality and hyponatremia; E87.6 Hypokalemia; E78.5 Hyperlipidemia, unspecified; K25.9 Gastric ulcer, unspecified as acute or chronic, without hemorrhage or perforation; I12.9 Hypertensive chronic kidney disease with stage 1 through stage 4 chronic kidney disease, or unspecified chronic kidney disease; N18.9 Chronic kidney disease, unspecified; Z53.21 Procedure and treatment not carried out due to patient leaving prior to being seen by health care provider
CPT/HCPCS: 36415; 76770; 80053; 80061; 80307; 81001; 82248; 83036; 83690; 83735; 83880; 84100; 84443; 84484; 84550; 85007; 85025; 86140; 99285; J2405; J8499

== ENCOUNTER 2017-11-12 19:39 | Inpatient (IN) | payer MEDICAID ==
[~2017-11-12] VITALS: Ht 185.4 cm; Wt 79.8 kg
[2017-11-12 20:58] LABS: EOSINOPHILS % (AUTO) 0.1 % (0.0-3.0); HEMATOCRIT 56.1 % (42.0-52.0); LYMPHOCYTES % (AUTO) 18.2 % (20.0-45.0); MEAN CORPUSCULAR VOLUME 86 FL (80-99); MONOCYTES % (AUTO) 10.9 % (1.0-10.0); NEUTROPHILS % (AUTO) 68.8 % (45.0-75.0); PLATELET COUNT 243 K/UL (150-450); RED CELL DISTRIBUTION WIDTH 12.8 % (11.6-14.8); WHITE BLOOD COUNT 6.4 K/UL (4.8-10.8)
[2017-11-12 21:04] LABS: HEMOGLOBIN 18.1 G/DL (14.2-18.0)
[2017-11-12 21:08] LABS: CHLORIDE 95 MMOL/L (98-107); POTASSIUM 3.5 MMOL/L (3.5-5.1)
[2017-11-12 21:10] LABS: ALANINE AMINOTRANSFERASE 37 U/L (12-78); ALBUMIN 5.8 G/DL (3.4-5.0)
[2017-11-12 21:27] LABS: ALBUMIN/GLOBULIN RATIO 1.3 (1.0-2.7); ALKALINE PHOSPHATASE 88 U/L (46-116); ANION GAP 12 mmol/L (5-15); ASPARTATE AMINO TRANSFERASE 27 U/L (15-37); BILIRUBIN,DIRECT 0.3 MG/DL (0.0-0.3); BILIRUBIN,TOTAL 1.3 MG/DL (0.2-1.0); BLOOD UREA NITROGEN 36 mg/dL (7-18); CALCIUM 10.9 MG/DL (8.5-10.1); CARBON DIOXIDE 30 MMOL/L (21-32); CREATININE 2.1 MG/DL (0.55-1.30); SODIUM 137 MMOL/L (136-145)
[2017-11-12 21:42] VITALS: BP 120/62
[2017-11-12] MEDS ORDERED: PRILOSEC OTC20 MG ORAL (22:01)
--- NOTE | 2017-11-12 22:28 | Emergency Room Report ---
History of Present Illness General Chief Complaint: Nausea, Vomiting, and Diarrhea Source: Patient Present Illness HPI Patient is a 46-year-old male who presented after increased nausea vomiting and abdominal pain. Patient reports having increased epigastric pain he had recently been reportedly diagnosed with ulcer disease. Patient prior history of cyclic vomiting. The patient was having increased abdominal discomfort as well as dizziness. He reports a generalized upper abdominal discomfort. He had recent hospitalization and checked himself out AGAINST MEDICAL ADVICE. The patient previous been taking care of by Dr. Chi Allergies: Coded Allergies: No Known Allergies (Unverified , 04/19/14) Patient History Reviewed Nursing Documentation: PMH: Agreed; PSxH: Agreed Nursing Documentation-PMH Hx Cardiac Problems: No Hx Cancer: No Hx Gastrointestinal Problems: Yes - Cyclic vomiting Hx Neurological Problems: No Review of Systems All Other Systems: negative except mentioned in HPI Physical Exam Vital Signs Date Time Temp Pulse Resp B/P (MAP) Pulse Ox O2 Delivery O2 Flow Rate FiO2 11/12/17 19:47 97.2 82 16 122/80 98 Room Air 97.2 Sp02 EP Interpretation: reviewed, normal General Appearance: alert, GCS 15, non-toxic, mild distress Head: atraumatic ENT: normal ENT inspection, hearing grossly normal, normal voice Neck: normal inspection, full range of motion, supple, no bony tend Respiratory: normal inspection, lungs clear, normal breath sounds, no respiratory distress, no retraction, no wheezing Cardiovascular #1: regular rate, rhythm, no edema Gastrointestinal: soft, tenderness - epigastric Genitourinary: no CVA tenderness Musculoskeletal: normal inspection, back normal, normal range of motion Neurologic: normal inspection, alert, oriented x3, responsive, speech normal Psychiatric: normal inspection, judgement/insight normal, mood/affect normal Skin: no rash, pallor Medical Decision Making Diagnostic Impression: Primary Impression: Abdominal pain Additional Impressions: Acute gastritis Chronic renal insufficiency ER Course Patient presented for abdominal pain. Differential diagnoses included ischemic bowel, appendicitis, perforated viscus, abdominal aortic aneurysm, inferior myocardial infarction, viral gastroenteritisBecause of complexity of patient's case laboratory testing and imaging studies were ordered. The laboratory testing was notable for some evidence of chronic renal sufficiency. The patient started on IV fluids as well as IV acid blockers. The patient was noted to have previous history of similar symptoms.Dr. Chi was contacted for inpatient management due to need for inpatient monitoring and treatment and prior admission . Labs Test 11/12/17 20:35 White Blood Count 6.4 K/UL (4.8-10.8) Red Blood Count 6.50 M/UL (4.70-6.10) Hemoglobin 18.1 G/DL (14.2-18.0) Hematocrit 56.1 % (42.0-52.0) Mean Corpuscular Volume 86 FL (80-99) Mean Corpuscular Hemoglobin 27.8 PG (27.0-31.0) Mean Corpuscular Hemoglobin Concent 32.2 G/DL (32.0-36.0) Red Cell Distribution Width 12.8 % (11.6-14.8) Platelet Count 243 K/UL (150-450) Mean Platelet Volume 8.9 FL (6.5-10.1) Neutrophils (%) (Auto) 68.8 % (45.0-75.0) Lymphocytes (%) (Auto) 18.2 % (20.0-45.0) Monocytes (%) (Auto) 10.9 % (1.0-10.0) Eosinophils (%) (Auto) 0.1 % (0.0-3.0) Basophils (%) (Auto) 2.0 % (0.0-2.0) Prothrombin Time 10.5 SEC (9.30-11.50) Prothromb Time International Ratio 1.0 (0.9-1.1) Activated Partial Thromboplast Time 26 SEC (23-33) Sodium Level 137 MMOL/L (136-145) Potassium Level 3.5 MMOL/L (3.5-5.1) Chloride Level 95 MMOL/L (98-107) Carbon Dioxide Level 30 MMOL/L (21-32) Anion Gap 12 mmol/L (5-15) Blood Urea Nitrogen 36 mg/dL (7-18) Creatinine 2.1 MG/DL (0.55-1.30) Estimat Glomerular Filtration Rate 41.6 mL/min (>60) Glucose Level 106 MG/DL (74-106) Calcium Level 10.9 MG/DL (8.5-10.1) Total Bilirubin 1.3 MG/DL (0.2-1.0) Direct Bilirubin 0.3 MG/DL (0.0-0.3) Aspartate Amino Transf (AST/SGOT) 27 U/L (15-37) Alanine Aminotransferase (ALT/SGPT) 37 U/L (12-78) Alkaline Phosphatase 88 U/L (46-116) Total Protein 10.4 G/DL (6.4-8.2) Albumin 5.8 G/DL (3.4-5.0) Globulin 4.6 g/dL Albumin/Globulin Ratio 1.3 (1.0-2.7) Lipase 143 U/L (73-393) Last Vital Signs Date Time Temp Pulse Resp B/P (MAP) Pulse Ox O2 Delivery O2 Flow Rate FiO2 11/12/17 21:42 97.2 88 14 120/62 99 Room Air 97.2 Status: unchanged Disposition: ADMITTED INPATIENT Condition: Serious Referrals: NOT CHOSEN IPA/,REFERRING (PCP) Andre Adams MD Nov 12, 2017 22:28
[2017-11-12] MEDS: Morphine Sulfate 2mg/ml Inj(IV/IM USE ONLY) IVP PRN (23:47)
[2017-11-13 00:07] VITALS: BP 137/75
[2017-11-13 04:00] VITALS: BP 123/99
--- NOTE | 2017-11-13 07:02 | Consultation ---
Consult Note Consult Note Hematology Consult DOS: 11/13/17 LIZETH RUCKER: Ashish RFC: Erythrocytosis Chief Complaint: Nausea, Vomiting, and Diarrhea HPI Patient is a 46-year-old male who presented after increased nausea vomiting and abdominal pain. Patient reports having increased epigastric pain he had recently been reportedly diagnosed with ulcer disease. Patient prior history of cyclic vomiting. The patient was having increased abdominal discomfort as well as dizziness. He reports a generalized upper abdominal discomfort. He had recent hospitalization and checked himself out AGAINST MEDICAL ADVICE. The patient previous been taking care of by Dr. Chi, noted to hae a elev hgb and heme consulted Allergies: No Known Allergies (Unverified , 04/19/14) Patient History Reviewed Nursing Documentation: PMH: Agreed; PSxH: Agreed Nursing Documentation-PMH Hx Cardiac Problems: No Hx Cancer: No Hx Gastrointestinal Problems: Yes - Cyclic vomiting Hx Neurological Problems: No Review of Systems All Other Systems: negative except mentioned in HPI ER Physical Exam - General Physical Exam Vital Signs Date Time Temp Pulse Resp B/P (MAP) Pulse Ox O2 Delivery O2 Flow Rate FiO2 11/12/17 19:47 97.2 82 16 122/80 98 Room Air 97.2 Sp02 EP Interpretation: reviewed, normal General Appearance: alert, GCS 15, non-toxic, mild distress Head: atraumatic ENT: normal ENT inspection, hearing grossly normal, normal voice Neck: normal inspection, full range of motion, supple, no bony tend Respiratory: normal inspection, lungs clear Cardiovascular #1: regular rate, rhythm, no edema Gastrointestinal: soft, tenderness - epigastric Genitourinary: no CVA tenderness Musculoskeletal: normal inspection, back normal Neurologic: normal inspection Psychiatric: normal inspection Skin: no rash, pallor Labs Test 11/12/17 20:35 White Blood Count 6.4 K/UL (4.8-10.8) Red Blood Count 6.50 M/UL (4.70-6.10) Hemoglobin 18.1 G/DL (14.2-18.0) Hematocrit 56.1 % (42.0-52.0) Mean Corpuscular Volume 86 FL (80-99) Mean Corpuscular Hemoglobin 27.8 PG (27.0-31.0) Mean Corpuscular Hemoglobin Concent 32.2 G/DL (32.0-36.0) Red Cell Distribution Width 12.8 % (11.6-14.8) Platelet Count 243 K/UL (150-450) Mean Platelet Volume 8.9 FL (6.5-10.1) Neutrophils (%) (Auto) 68.8 % (45.0-75.0) Lymphocytes (%) (Auto) 18.2 % (20.0-45.0) Monocytes (%) (Auto) 10.9 % (1.0-10.0) Eosinophils (%) (Auto) 0.1 % (0.0-3.0) Basophils (%) (Auto) 2.0 % (0.0-2.0) Prothrombin Time 10.5 SEC (9.30-11.50) Prothromb Time International Ratio 1.0 (0.9-1.1) Activated Partial Thromboplast Time 26 SEC (23-33) Sodium Level 137 MMOL/L (136-145) Potassium Level 3.5 MMOL/L (3.5-5.1) Chloride Level 95 MMOL/L (98-107) Carbon Dioxide Level 30 MMOL/L (21-32) Anion Gap 12 mmol/L (5-15) Blood Urea Nitrogen 36 mg/dL (7-18) Creatinine 2.1 MG/DL (0.55-1.30) Estimat Glomerular Filtration Rate 41.6 mL/min (>60) Glucose Level 106 MG/DL (74-106) Calcium Level 10.9 MG/DL (8.5-10.1) Total Bilirubin 1.3 MG/DL (0.2-1.0) Direct Bilirubin 0.3 MG/DL (0.0-0.3) Aspartate Amino Transf (AST/SGOT) 27 U/L (15-37) Alanine Aminotransferase (ALT/SGPT) 37 U/L (12-78) Alkaline Phosphatase 88 U/L (46-116) Total Protein 10.4 G/DL (6.4-8.2) Albumin 5.8 G/DL (3.4-5.0) Globulin 4.6 g/dL Albumin/Globulin Ratio 1.3 (1.0-2.7) Lipase 143 U/L (73-393) Assessment and Recs # Erythrocytosis - likely related to nasuea/vomiting, dehydration --> started on NS IVF and should correct --> reviewed prior labs, is less likely myeloproliferative disorder, will hold off from sending ryan 2 --> peipheral smear reviewed, no blasts noted, other abnormalities # Abdominal pain likely related to acute gastritis --> IVF started, consider GI eval, potentially related to THC use --> trop ekg pending as well r/o ACS # Acute gastritis # Chronic renal insufficiency # THC use, current GREATLY APPRECIATE CONSULTATION Omi Monahan MD Nov 13, 2017 07:02
[2017-11-13 07:16] LABS: ANION GAP 13 mmol/L (5-15); BLOOD UREA NITROGEN 43 mg/dL (7-18); CALCIUM 10.1 MG/DL (8.5-10.1); CARBON DIOXIDE 25 MMOL/L (21-32); CHLORIDE 92 MMOL/L (98-107); CREATININE 2.4 MG/DL (0.55-1.30); POTASSIUM 3.3 MMOL/L (3.5-5.1); SODIUM 130 MMOL/L (136-145)
[2017-11-13 08:00] VITALS: BP 138/71
[2017-11-13] MEDS: Morphine Sulfate 2mg/ml Inj(IV/IM USE ONLY) IVP PRN (08:25)
[2017-11-13] MEDS ORDERED: Pantoprazole Inj IVP SCH (09:00)
[2017-11-13 12:00] VITALS: BP 129/85
--- NOTE | 2017-11-13 12:37 | History & Physical ---
History and Physical History & Physicial HISTORY OF PRESENT ILLNESS: The patient is a pleasant 46-year-old, male with a history of cyclic vomiting probably GERD. patient left the hospital AMA. within less than 24 hour. returened to hospital secondary to recurrence of his symptoms. The patient presented with recurrence of this same problem starting 1 days ago, after leaving hospital AMA. He denies any alleviating or aggravating factors. He denies any abnormal bleeding. He gives prior history of gastritis. At the time of evaluation, the patient denies any blurry vision or headaches. Denies any swelling on the extremities. REVIEW OF SYSTEMS: Reviewed. All pertinent negatives are reviewed as follows. PAST SURGICAL HISTORY: Denies. ALLERGIES: NKDA. FAMILY HISTORY: Noncontributory. SOCIAL HISTORY: Denies history of illicit drug abuse. Positive for smoking THC, otherwise denies any IV drug abuse. PHYSICAL EXAMINATION: VITAL SIGNS: Blood pressure 110/70, pulse oximetry 98% on room, respiratory rate 18, and temperature 98.2 degrees. UT: 80-90 HEAD AND NECK: Atraumatic and normocephalic. CHEST: Clear to auscultation. HEART: S1 and S2. Regular rate and rhythm. ABDOMEN: Soft and nontender. MUSCULOSKELETAL: No gross focal motor deficit. NEUROLOGY: The patient awake, alert and oriented x3. MEDICATIONS: Current medications including, but not limited to, Reglan p.r.n. , LABORATORY AND DIAGNOSTIC DATA: Lab dated 11/11/2017 s reviewed. ASSESSMENT AND PLAN: 1. Acute on chronic cyclic vomitus disorder. 2. Dehydration.D 3. Leukocytosis with no evidence of acute active infection. 4. Hyponatremia. 5. Hypokalemia. 6. Acute renal failure. 7. Hypercalcemia. 8. Hyperlipidemia. 9. GI and DVT prophylaxis. PLAN OF CARE: Nephrology and GI have been consulted. We will keep the patient NPO. Abd US ordered Nancy Chi MD Nov 13, 2017 12:37
--- NOTE | 2017-11-13 15:21 | Consultation ---
Consult Note Consult Note know from last admit signed AMA 11/11- readmitted today with vomiting Patient is a 46-year-old male who presented after increased nausea vomiting and abdominal pain. Patient reports having increased epigastric pain he had recently been reportedly diagnosed with ulcer disease. Patient prior history of cyclic vomiting. The patient was having increased abdominal discomfort as well as dizziness. He reports a generalized upper abdominal discomfort. He had recent hospitalization and checked himself out AGAINST MEDICAL ADVICE. The patient previous been taking care of by Dr. Chi Allergies: Hx Cardiac Problems: No Hx Gastrointestinal Problems: Yes - Cyclic vomiting drug abuse Assessment/Plan (1) Acute renal insufficiency Cr down trending (2) Dehydration (3) Intractable vomiting (4) Cannabis abuse with cannabis-induced disorder (5) poly substance abuse IV Hydrate- IV Reglan Avoid Narcotic use Per orders Junior Chow MD Nov 13, 2017 15:21
[2017-11-13 16:22] VITALS: BP 146/67
[2017-11-13] MEDS: Metoclopramide 10mg/2ml Inj IVP SCH (17:35)
[2017-11-13] MEDS: Docusate 100mg cap ORAL SCH (17:35)
[2017-11-13 20:00] VITALS: BP 132/74
[2017-11-13] MEDS ORDERED: traMADol 50mg tab ORAL PRN (22:30)
[2017-11-14] VITALS: BP 110/60
[2017-11-14] MEDS: Metoclopramide 10mg/2ml Inj IVP SCH ×2 (00:46→05:13)
[2017-11-14 04:00] VITALS: BP 126/98
[2017-11-14 07:24] LABS: BASOPHILS % (AUTO) 0.7 % (0.0-2.0); EOSINOPHILS % (AUTO) 1.4 % (0.0-3.0); HEMATOCRIT 46.2 % (42.0-52.0); HEMOGLOBIN 14.8 G/DL (14.2-18.0); LYMPHOCYTES % (AUTO) 15.7 % (20.0-45.0); MEAN CORPUSCULAR VOLUME 85 FL (80-99); MONOCYTES % (AUTO) 14.8 % (1.0-10.0); NEUTROPHILS % (AUTO) 67.3 % (45.0-75.0); PLATELET COUNT 165 K/UL (150-450); RED BLOOD COUNT 5.46 M/UL (4.70-6.10); RED CELL DISTRIBUTION WIDTH 12.6 % (11.6-14.8); WHITE BLOOD COUNT 5.9 K/UL (4.8-10.8)
[2017-11-14 07:49] LABS: ALANINE AMINOTRANSFERASE 28 U/L (12-78); ALBUMIN 3.8 G/DL (3.4-5.0); ALBUMIN/GLOBULIN RATIO 1.1 (1.0-2.7); ALKALINE PHOSPHATASE 60 U/L (46-116); ANION GAP 7 mmol/L (5-15); ASPARTATE AMINO TRANSFERASE 21 U/L (15-37); BILIRUBIN,TOTAL 1.4 MG/DL (0.2-1.0); BLOOD UREA NITROGEN 30 mg/dL (7-18); CALCIUM 8.7 MG/DL (8.5-10.1); CARBON DIOXIDE 28 MMOL/L (21-32); CHLORIDE 99 MMOL/L (98-107); CREATINE KINASE 303 U/L (26-308); CREATININE 1.3 MG/DL (0.55-1.30); GAMMA GLUTAMYL TRANSPEPTIDASE 17 U/L (5-85); PHOSPHORUS 1.8 MG/DL (2.5-4.9); POTASSIUM 3.4 MMOL/L (3.5-5.1); SODIUM 134 MMOL/L (136-145)
[2017-11-14 07:50] LABS: BILIRUBIN,DIRECT 0.2 MG/DL (0.0-0.3)
[2017-11-14 08:00] VITALS: BP 111/48
[2017-11-14] MEDS ORDERED: Potassium Phosphate 30 MM in NS 275 ML IV SCH (09:30)
--- NOTE | 2017-11-14 09:44 | Nephrology Progress Note ---
Assessment/Plan Problem List: (1) Intractable vomiting (2) Dehydration (3) Acute renal insufficiency (4) Cannabis abuse with cannabis-induced disorder Assessment (1) Acute renal insufficiency Cr down trending (2) Dehydration (3) Intractable vomiting (4) Cannabis abuse with cannabis-induced disorder (5) poly substance abuse Plan IV Hydrate- IV Reglan to PO K and Phos supplement Avoid Narcotic use Per orders ? DC in am? Subjective ROS Limited/Unobtainable: No Constitutional: Reports: malaise Objective Objective Last 24 Hour Vital Signs Date Time Temp Pulse Resp B/P (MAP) Pulse Ox O2 Delivery O2 Flow Rate FiO2 11/14/17 04:00 98.8 71 18 126/98 (107) 99 98.8 11/14/17 00:00 99.0 71 18 110/60 (77) 98 99.0 11/13/17 21:00 Room Air 11/13/17 20:00 99.7 79 18 132/74 (93) 99 99.7 11/13/17 16:22 98.2 80 18 146/67 (93) 99 98.2 11/13/17 12:00 98.1 85 18 129/85 (100) 99 98.1 Intake and Output 11/13/17 11/14/17 19:00 07:00 Intake Total 1550 ml 900 ml Balance 1550 ml 900 ml Intake Oral 450 ml IV Total 1100 ml 900 ml # Voids 3 Laboratory Tests 11/13/17 13:31: Urine Opiates Screen PositiveH, Urine Barbiturates Screen Negative, Phencyclidine (PCP) Screen Negative, Urine Amphetamines Screen Negative, Urine Benzodiazepines Screen Negative, Urine Cocaine Screen Negative, Urine Marijuana (THC) Screen PositiveH 11/14/17 07:00: White Blood Count 5.9, Red Blood Count 5.46, Hemoglobin 14.8, Hematocrit 46.2, Mean Corpuscular Volume 85, Mean Corpuscular Hemoglobin 27.1, Mean Corpuscular Hemoglobin Concent 32.1, Red Cell Distribution Width 12.6, Platelet Count 165, Mean Platelet Volume 8.6, Neutrophils (%) (Auto) 67.3, Lymphocytes (%) (Auto) 15.7L, Monocytes (%) (Auto) 14.8H, Eosinophils (%) (Auto) 1.4, Basophils (%) ( Auto) 0.7, Sodium Level 134L, Potassium Level 3.4L, Chloride Level 99, Carbon Dioxide Level 28, Anion Gap 7, Blood Urea Nitrogen 30H, Creatinine 1.3, Estimat Glomerular Filtration Rate > 60, Glucose Level 104, Uric Acid 5.3, Calcium Level 8.7, Phosphorus Level 1.8L, Magnesium Level 2.1, Total Bilirubin 1.4H, Direct Bilirubin 0.2, Gamma Glutamyl Transpeptidase 17, Aspartate Amino Transf ( AST/SGOT) 21, Alanine Aminotransferase (ALT/SGPT) 28, Alkaline Phosphatase 60, Total Creatine Kinase 303, Total Protein 7.3, Albumin 3.8, Globulin 3.5, Albumin /Globulin Ratio 1.1 Height (Feet): 6 Height (Inches): 1.00 Weight (Pounds): 176 General Appearance: no apparent distress Objective no change Junior Chow MD Nov 14, 2017 09:44
[2017-11-14] MEDS: Docusate 100mg cap ORAL SCH (09:48)
--- NOTE | 2017-11-14 10:02 | General Progress Note ---
Assessment/Plan Status: unchanged Assessment/Plan # Erythrocytosis - likely related to nasuea/vomiting, dehydration --> started on NS IVF and should correct --> reviewed prior labs, is less likely myeloproliferative disorder, will hold off from sending ryan 2 --> peipheral smear reviewed, no blasts noted, other abnormalities # Abdominal pain likely related to acute gastritis --> IVF started, consider GI eval, potentially related to THC use --> trop ekg pending as well r/o ACS # Acute gastritis # Chronic renal insufficiency # THC use, current The time the note was entered does not necessarily correspond to the time the patient was seen. Subjective Date patient seen: Nov 14, 2017 ROS Limited/Unobtainable: Yes Gastrointestinal/Abdominal: Reports: abdominal pain Allergies: Coded Allergies: No Known Allergies (Unverified , 04/19/14) All Systems: reviewed and negative except above Subjective Pt awake and alert. No acute events. Pt c/o abd pain. US abd pending. Objective Last 24 Hour Vital Signs Date Time Temp Pulse Resp B/P (MAP) Pulse Ox O2 Delivery O2 Flow Rate FiO2 11/14/17 04:00 98.8 71 18 126/98 (107) 99 98.8 11/14/17 00:00 99.0 71 18 110/60 (77) 98 99.0 11/13/17 21:00 Room Air 11/13/17 20:00 99.7 79 18 132/74 (93) 99 99.7 11/13/17 16:22 98.2 80 18 146/67 (93) 99 98.2 11/13/17 12:00 98.1 85 18 129/85 (100) 99 98.1 Intake and Output 11/13/17 11/14/17 19:00 07:00 Intake Total 1550 ml 900 ml Balance 1550 ml 900 ml Intake Oral 450 ml IV Total 1100 ml 900 ml # Voids 3 Laboratory Tests 11/13/17 13:31: Urine Opiates Screen PositiveH, Urine Barbiturates Screen Negative, Phencyclidine (PCP) Screen Negative, Urine Amphetamines Screen Negative, Urine Benzodiazepines Screen Negative, Urine Cocaine Screen Negative, Urine Marijuana (THC) Screen PositiveH 11/14/17 07:00: White Blood Count 5.9, Red Blood Count 5.46, Hemoglobin 14.8, Hematocrit 46.2, Mean Corpuscular Volume 85, Mean Corpuscular Hemoglobin 27.1, Mean Corpuscular Hemoglobin Concent 32.1, Red Cell Distribution Width 12.6, Platelet Count 165, Mean Platelet Volume 8.6, Neutrophils (%) (Auto) 67.3, Lymphocytes (%) (Auto) 15.7L, Monocytes (%) (Auto) 14.8H, Eosinophils (%) (Auto) 1.4, Basophils (%) ( Auto) 0.7, Sodium Level 134L, Potassium Level 3.4L, Chloride Level 99, Carbon Dioxide Level 28, Anion Gap 7, Blood Urea Nitrogen 30H, Creatinine 1.3, Estimat Glomerular Filtration Rate > 60, Glucose Level 104, Uric Acid 5.3, Calcium Level 8.7, Phosphorus Level 1.8L, Magnesium Level 2.1, Total Bilirubin 1.4H, Direct Bilirubin 0.2, Gamma Glutamyl Transpeptidase 17, Aspartate Amino Transf ( AST/SGOT) 21, Alanine Aminotransferase (ALT/SGPT) 28, Alkaline Phosphatase 60, Total Creatine Kinase 303, Total Protein 7.3, Albumin 3.8, Globulin 3.5, Albumin /Globulin Ratio 1.1 Height (Feet): 6 Height (Inches): 1.00 Weight (Pounds): 176 General Appearance: no apparent distress EENT: PERRL/EOMI Neck: normal alignment Cardiovascular: normal peripheral pulses Respiratory/Chest: normal breath sounds, no respiratory distress Abdomen: tender Omi Monahan MD Nov 14, 2017 10:02
--- NOTE | 2017-11-14 10:46 | General Progress Note ---
Assessment/Plan Assessment/Plan S: I have lots of abdominal pain O: has good apetite. Reported that pain only responds to IV - Morphin PHYSICAL EXAMINATION:HEAD AND NECK: Atraumatic and normocephalic. CHEST: Clear to auscultation. HEART: S1 and S2. Regular rate and rhythm. ABDOMEN: Soft and nontender. MUSCULOSKELETAL: No gross focal motor deficit. NEUROLOGY: The patient awake, alert and oriented x3. Meds: reviewed and reconciled including Toradol MEDICATIONS: Current medications including, but not limited to, Reglan p.r.n. , 1. Acute on chronic cyclic vomitus disorder. 2. Dehydration.D 3. Leukocytosis with no evidence of acute active infection. 4. Hyponatremia. 5. Hypokalemia. 6. Acute on chronic renal failure. 7. Hypercalcemia. 8. Hyperlipidemia. 9. GI and DVT prophylaxis. 10 . Narcotic seeking behavior 11. Refusal of Care PLAN OF CARE: I explained the need for Supplementation of electrolyte. I explained consequences of not taking them, including . He understood. However refuses Exclusively askes for Morphin IV. Subjective Allergies: Coded Allergies: No Known Allergies (Unverified , 04/19/14) Objective Last 24 Hour Vital Signs Date Time Temp Pulse Resp B/P (MAP) Pulse Ox O2 Delivery O2 Flow Rate FiO2 11/14/17 04:00 98.8 71 18 126/98 (107) 99 98.8 11/14/17 00:00 99.0 71 18 110/60 (77) 98 99.0 11/13/17 21:00 Room Air 11/13/17 20:00 99.7 79 18 132/74 (93) 99 99.7 11/13/17 16:22 98.2 80 18 146/67 (93) 99 98.2 11/13/17 12:00 98.1 85 18 129/85 (100) 99 98.1 Intake and Output 11/13/17 11/14/17 19:00 07:00 Intake Total 1550 ml 900 ml Balance 1550 ml 900 ml Intake Oral 450 ml IV Total 1100 ml 900 ml # Voids 3 Laboratory Tests 11/13/17 13:31: Urine Opiates Screen PositiveH, Urine Barbiturates Screen Negative, Phencyclidine (PCP) Screen Negative, Urine Amphetamines Screen Negative, Urine Benzodiazepines Screen Negative, Urine Cocaine Screen Negative, Urine Marijuana (THC) Screen PositiveH 11/14/17 07:00: White Blood Count 5.9, Red Blood Count 5.46, Hemoglobin 14.8, Hematocrit 46.2, Mean Corpuscular Volume 85, Mean Corpuscular Hemoglobin 27.1, Mean Corpuscular Hemoglobin Concent 32.1, Red Cell Distribution Width 12.6, Platelet Count 165, Mean Platelet Volume 8.6, Neutrophils (%) (Auto) 67.3, Lymphocytes (%) (Auto) 15.7L, Monocytes (%) (Auto) 14.8H, Eosinophils (%) (Auto) 1.4, Basophils (%) ( Auto) 0.7, Sodium Level 134L, Potassium Level 3.4L, Chloride Level 99, Carbon Dioxide Level 28, Anion Gap 7, Blood Urea Nitrogen 30H, Creatinine 1.3, Estimat Glomerular Filtration Rate > 60, Glucose Level 104, Uric Acid 5.3, Calcium Level 8.7, Phosphorus Level 1.8L, Magnesium Level 2.1, Total Bilirubin 1.4H, Direct Bilirubin 0.2, Gamma Glutamyl Transpeptidase 17, Aspartate Amino Transf ( AST/SGOT) 21, Alanine Aminotransferase (ALT/SGPT) 28, Alkaline Phosphatase 60, Total Creatine Kinase 303, Total Protein 7.3, Albumin 3.8, Globulin 3.5, Albumin /Globulin Ratio 1.1 Height (Feet): 6 Height (Inches): 1.00 Weight (Pounds): 176 Nancy Chi MD Nov 14, 2017 10:46
--- NOTE | 2017-11-14 12:41 | Cardiology Report ---
APPROVED REPORT EKG Measurement Heart [id number] Normal sinus rhythm Biatrial enlargement Left axis deviation Abnormal ECG
--- NOTE | 2017-11-14 15:38 | Diagnostic Imaging Report ---
Indication: Abdominal and epigastric pain, vomiting Technique: Garza-scale and duplex images of the upper abdomen were obtained Comparison: Reference made to renal ultrasound 11/10/2017 Findings: Gallbladder is unremarkable, without stones, wall thickening, nor pericholecystic fluid. Sonographic Jj's sign is negative. Common bile duct measures 3 mm in diameter. No intrahepatic biliary ductal dilatation. Liver demonstrates normal echogenicity, no focal abnormality. Portal vein and hepatic veins are patent. Pancreas is unremarkable. Spleen is somewhat small, measuring 5.7 cm in length. Left kidney measures 11.6 cm in length. Right kidney measures 11 cm length. Both kidneys demonstrate increased echogenicity. Bright echoes in the renal sinuses could reflect small stones, or could be artifactual There is no hydronephrosis. Non-aneurysmal abdominal aorta . Impression: Negative for gallstones or dilated ducts Bilateral increased renal echogenicity, consistent with medical renal disease. Negative for hydronephrosis Small renal sinus calculi versus artifact Small spleen, nonspecific
--- NOTE | 2017-11-17 07:41 | Discharge Summary ---
Discharge Summary Discharge Summary _ DATE OF ADMISSION: 11/12/2017 DATE OF DISCHARGE: 11/14/2017. Patient signed again medical advice REASON FOR ADMISSION: 46 years old male with history of cyclic vomiting syndrome, marijuana use, gastric ulcer, presented with nausea, vomiting and epigastric non-radiating pain pain. Upon evaluation vital signs were stable. Laboratory workup revealed no leukocytosis, but demonstrated evidence of erythrocytosis. EKG revealed normal sinus rhythm, no acute changes. Lipase and LFT were within normal limits . BUN 30 ,creatinine 2.1 ,calcium 10.9, total protein 10.4, albumin 5.8, total bili 1.3 . Electrolytes were stable initially. Urine toxicology was positive for opiates and marijuana. Patient admitted with diagnoses of abdominal pain ,acute gastritis, acute on chronic cyclic vomiting syndrome, acute on chronic renal insufficiency. CONSULTANTS: loan funder Dr. Chow electron gun inspector/oncologist Dr. Monahan [facility] COURSE: Patient admitted to Med Surg floor. Patient was kept initially nothing by mouth. Patient started on IV hydration. Next day noted low sodium and potassium. [employer] followed . Renal parameters and electrolytes were closely monitored, electrolytes replaced as needed, and nephrotoxic were avoided. Antiemetics provided as needed. GI consult was pending. Abdominal ultrasound revealed no gallstones or dilated ducts, but demonstrated bilateral increased kidneys echogenicity, consistent with medical renal disease. Patient slowly started on diet as tolerated. GI prophylaxis provided Hematology consult was requested secondary to erythrocytosis and elevated total protein. Per electron gun inspector, erythrocytosis was likely related to vomiting and dehydration and resolved with IV hydration. Serum protein electrophoresis revealed elevated globulin and elevated beta globulin. Patient consistently demonstrated refusal of care and only wanted morphine for pain management. Patient decided to sign AGAINST MEDICAL ADVICE. Prior to signing AMA BUN 30 creatinine 1.3. Patient was able to tolerate diet. Patient was advised on abstinence from street drug and marijuana. The risks and consequences of signing AGAINST MEDICAL ADVICE were discussed with patient in detail. Patient verbalized understanding, nevertheless signed AMA form and left. FINAL DIAGNOSES: Acute on chronic cyclic vomiting syndrome Acute gastritis Dehydration Hyponatremia Hypokalemia Acute renal failure on chronic renal insufficiency Hypercalcemia Erythrocytosis Cannabis abuse with cannabis induced disorder Narcotic seeking behavior Refusal of care I have been assigned to dictate discharge summary for this account. I was not involved in the patient's management. Sophie Magaña NP Nov 17, 2017 07:41
== END 2017-11-14 11:23 | disposition left against medical advice (07) | DRG 54 ==
LOC: EMR 20:33 → 4E 21:20 → EDBEDREQ 21:29
DX: G43.A0 Cyclical vomiting, in migraine, not intractable (principal); N17.9 Acute kidney failure, unspecified; E87.1 Hypo-osmolality and hyponatremia; E83.52 Hypercalcemia; D75.1 Secondary polycythemia; E86.0 Dehydration; F12.188 Cannabis abuse with other cannabis-induced disorder; E87.6 Hypokalemia; E78.5 Hyperlipidemia, unspecified; K29.00 Acute gastritis without bleeding; Z76.5 Malingerer [conscious simulation]; Z53.29 Procedure and treatment not carried out because of patient's decision for other reasons; N28.9 Disorder of kidney and ureter, unspecified; F19.10 Other psychoactive substance abuse, uncomplicated
CPT/HCPCS: 36415; 76700; 80048; 80053; 80307; 81050; 82248; 82550; 82977; 83690; 83735; 84100; 84156; 84165; 84550; 85025; 85610; 85730; 86140; 86850; 86900; 86901; 93005; J2405; J2765; J8499